=== PATIENT | male | born 1935 | race Caucasian/White ===

== ENCOUNTER → 2017-01-02 | Outpatient (CLI) | payer OTHER ==
[~2017-01-02] MED LIST: DEPO METHYLPREDNISOLONE 40 MG/ML SDV ONE; IOPAMIDOL (ISOVUE 370) 100 ML BTL IV ONE; LIDOCAINE 1% 300 MG/30 ML SDV ONE; ROPIVACAINE HCL 150 MG/30 ML INJ ONE
== END ==
LOC: FIMAGING 10:29
PROVIDERS: ATTEND Orthopaedic Surgery
DX: M25.551 Pain in right hip (principal)
CPT/HCPCS: 20610; J1030; J2795; Q9967

== ENCOUNTER 2017-06-04 07:57 | Inpatient (IN) | payer OTHER ==
--- NOTE | 2017-06-04 07:16 | PDHPUP ---
History & Physical Update H&P update statement: This history and physical update is based on an assessment of the patient which was completed after admission or registration (within 24 hours), but prior to the surgery/procedure. H&P update: H&P reviewed & patient examined, no change in patient's condition since H&P completed
[~2017-06-04 07:57] MED LIST changes: +BUPI/epINEPH/KETOROLAC IU ONE; -DEPO METHYLPREDNISOLONE 40 MG/ML SDV ONE; -IOPAMIDOL (ISOVUE 370) 100 ML BTL IV ONE; -LIDOCAINE 1% 300 MG/30 ML SDV ONE; +ROPIVACAINE 0.2% 80 MG, EPINEPHrine 0.2 MG, KETOROLAC TROMETHAMINE 30 MG in SYRINGE 0 ML IU ONE; -ROPIVACAINE HCL 150 MG/30 ML INJ ONE; +TRANEXAMIC ACID 3,000 MG in NS (SYRINGE) 50 ML IRR ONE; +TRANEXAMIC ACID 3,000 MG/50 ML BAG IRR ONE
[2017-06-04] MEDS ORDERED: DEXAMETHASONE 4 MG/ML VIAL IVP ONE (08:08)
[2017-06-04] MEDS ORDERED: ceFAZolin 2 GM/SWFI 2 GM/20 ML SYR IVP ONE (08:08)
[2017-06-04] MEDS ORDERED: ACETAMINOPHEN 325 MG TAB PO ONE (08:08)
[2017-06-04] MEDS ORDERED: FAMOTIDINE 20 MG TAB PO ONE (08:08)
[2017-06-04] MEDS ORDERED: LR 1,000 ML IV ONE (08:11)
[2017-06-04] MEDS ORDERED: LIDOCAINE 1% 2 ML INJ ID PRN (08:11)
[2017-06-04] MEDS ORDERED: MIDAZOLAM 2 MG/2 ML VIAL IVP ONE (09:51)
--- NOTE | 2017-06-04 09:51 | PDANEPAE ---
ANE History of Present Illness R LUCAS ANE Past Medical History - Cardiovascular History Hx Hypertension: Yes Hx Arrhythmias: Yes Hx Chest Pain: Yes Hx Coronary Artery / Peripheral Vascular Disease: Yes Hx CHF / Valvular Disease: No Hx Palpitations: No Cardiovascular History Comment: pt has 6 drug eluding stent placed 2016 - Pulmonary History Hx COPD: No Hx Asthma/Reactive Airway Disease: No Hx Recent Upper Respiratory Infection: No Hx Oxygen in Use at Home: No Hx Sleep Apnea: No Sleep Apnea Screening Result - Last Documented: Positive - Neurologic History Hx Cerebrovascular Accident: No Hx Seizures: No Hx Dementia: No - Endocrine History Hx Diabetes: No - Renal History Hx Renal Disorders: No - Liver History Hx Hepatic Disorders: No - Neurological & Psychiatric Hx Hx Neurological and Psychiatric Disorders: No - Cancer History Hx Cancer: No - Congenital Disorder History Hx Congenital Disorders: Yes Congenital History Comment: heart disease - GI History Hx Gastrointestinal Disorders: Yes Gastrointestinal History Comment: reflux, gerd - Other Health History Other Health History: bruises easily - Chronic Pain History Chronic Pain: No - Surgical History Prior Surgeries: cardiac cath. 2016 6 stents placed. 25 december, 22 february ANE Review of Systems Review of systems is: negative Review of Systems: - Exercise capacity METS (RN): 4 METS ANE Patient History - Allergies Allergies/Adverse Reactions: No Known Allergies Allergy (Verified 05/15/17 17:03) - Home Medications Home medications: home medication list seen and reviewed Home Medications: Aspirin EC [Aspirin EC 81 mg (*)] 81 mg PO HS 01/02/16 [Last Taken 06/03/17] Crane-3 Fatty Acids [Fish Oil 1000 mg (*)] 2,000 mg PO HS 01/02/16 [Last Taken 05/28/17] Cholecalciferol Vit D3 [Vitamin D3 2000 units tab (OTC)] 4,000 units PO HS 05/15 [Last Taken 05/28/17] Clopidogrel Bisulfate [Plavix (*)] 75 mg PO DAILY@05/15/17 [Last Taken ] Metoprolol Succinate Xr [Toprol Xl 25 mg (*)] 25 mg PO DAILY@12 05/15/17 [Last Taken 06/04/17] Rosuvastatin Calcium [Crestor 20mg (*)] 20 mg PO HS 05/15/17 [Last Taken ] - NPO status NPO Since - Liquids (Date): 06/04/17 NPO Since - Liquids (Time): 06:30 NPO Since - Solids (Date): 06/03/17 NPO Since - Solids (Time): 19:30 - Anes Hx Anes Hx: no prior problems - Smoking Hx Smoking Status: Never smoked - Family Anes Hx Family Anes Hx: none Family Hx Anesthesia Complications: none ANE Labs/Vital Signs - Vital Signs Blood Pressure: 147/84 Heart Rate: 64 Respiratory Rate: 14 O2 Sat (%): 94 Height: 175.26 cm Weight: 87.09 kg ANE Physical Exam - Airway Neck exam: FROM Mallampati Score: Class 1 Mouth exam: normal dental/mouth exam - Pulmonary Pulmonary: no respiratory distress - Cardiovascular Cardiovascular: regular rate and rhythym - ASA Status ASA Status: III ANE Anesthesia Plan Anesthesia Plan: spinal Total IV Anesthesia: Yes
[2017-06-04] MEDS ORDERED: PROPOFOL/EMULSION 500 MG/50 ML BOTTLE IV ONE (10:09)
[2017-06-04] MEDS ORDERED: LIDOCAINE 2% 100 MG/5 ML SYR ONE (10:09)
[2017-06-04] MEDS ORDERED: HYDROCODONE/APAP 5/325 TAB PO PRN (11:06)
[2017-06-04] MEDS ORDERED: HYDROmorphONE/DILAUDID 1 MG/ML INJ IVP PRN (11:06)
[2017-06-04] MEDS ORDERED: ACETAMINOPHEN 500 MG TAB PO PRN (11:06)
[2017-06-04] MEDS ORDERED: NALOXONE HCL 0.4 MG/ML INJ IVP PRN (11:06)
[2017-06-04] MEDS ORDERED: fentaNYL 100 MCG/2 ML INJ IVP PRN (11:06)
[2017-06-04] MEDS ORDERED: OXYCODONE/APAP 5/325 TAB PO PRN (11:06)
[2017-06-04] MEDS ORDERED: MEPERIDINE 25 MG/ML SYR IVP PRN (11:06)
[2017-06-04] MEDS ORDERED: ONDANSETRON 4 MG/2 ML VIAL IVP PRN ×2 (11:06→11:42)
[2017-06-04] MEDS ORDERED: DEXAMETHASONE 4 MG/ML VIAL IVP PRN (11:06)
[2017-06-04] MEDS ORDERED: PHENYLEPHRINE HCL 100 MCG/ML SYR ONE (11:08)
--- NOTE | 2017-06-04 11:09 | POSTANESTH ---
Post Anesthetic Evaluation Cardiovascular Status: Similar to Pre-Op Cond Respiratory Status: Normal, Stable, Similar to Pre-op Cond. Level of Consciousness/Mental Status: Can Participate in Eval, Moderately Sleepy Pain Control: Adequate, Prn Tx Ordered Nausea/Vomiting Control: Adequate, Prn Tx Ordered Complications Possibly Related to Anesthesia: None Noted
[2017-06-04] MEDS ORDERED: PROMETHAZINE HCL 25 MG SUPPR PR PRN (11:42)
[2017-06-04] MEDS ORDERED: CYCLOBENZAPRINE 10 MG TAB PO PRN (11:42)
[2017-06-04] MEDS ORDERED: diphenhydrAMINE 25 MG CAP PO PRN (11:42)
[2017-06-04] MEDS ORDERED: PROMETHAZINE HCL 25 MG/ML INJ IVP PRN (11:42)
[2017-06-04] MEDS ORDERED: METOCLOPRAMIDE 10 MG/2 ML VIAL IVP PRN (11:42)
[2017-06-04] MEDS ORDERED: MAGNESIUM HYDROXIDE 30 ML UDCUP PO PRN (11:42)
[2017-06-04] MEDS ORDERED: LACTULOSE 20 GM/30 ML UDCUP PO PRN (11:42)
[2017-06-04] MEDS ORDERED: BISACODYL 10 MG SUPP PR PRN (11:42)
[2017-06-04] MEDS ORDERED: DIPHENOXYLATE/ATROPINE LOMOTIL 1 TAB PO PRN (11:42)
[2017-06-04] MEDS ORDERED: POLYETHYLENE GLYCOL 3350 17 GM PKT PO PRN (11:42)
[2017-06-04] MEDS ORDERED: TEMAZEPAM 15 MG CAP PO PRN (11:42)
[2017-06-04] MEDS ORDERED: ONDANSETRON DISINTEGRATING 4 MG TAB PO PRN (11:42)
--- NOTE | 2017-06-04 11:42 | POSTOPPROG ---
Post Op Note Date of Operation: 06/04/17 Surgeon: Rai Bright Manager Of Housekeeping: chandrika bright Anesthesiologist: dr. estrada Anesthesia: Spinal Pre-op Diagnosis: right hip OA Post-op Diagnosis: same Indication: right hip pain due to OA that failed conservative measures Procedure: R LUCAS ant approach Findings: severe hip OA Inf/Abcess present in the surg proc area at time of surgery?: No EBL: 100-500
[2017-06-04] MEDS ORDERED: NITROGLYCERIN 0.4 MG BTL SL PRN (11:43)
[2017-06-04] MEDS ORDERED: METOPROLOL SUCCINATE XR 25 MG TAB PO SCH (12:00)
[2017-06-04] MEDS ORDERED: LR 1,000 ML IV SCH (12:00)
[2017-06-04] MEDS: ACETAMINOPHEN 325 MG TAB PO SCH ×2 (13:13→17:42)
[2017-06-04] MEDS ORDERED: ceFAZolin 2 GM/DEXTROSE 100 ML IV SCH (14:00)
[2017-06-04] MEDS: oxyCODONE IR 5 MG TAB PO PRN ×2 (15:24→20:50)
[2017-06-04] MEDS: ceFAZolin 2 GM/SWFI 2 GM/20 ML SYR IVP SCH (17:43)
--- NOTE | 2017-06-04 18:12 | PDMN ---
Medical Necessity Medical necessity: IP surgery per [facility] cpt [id number] L LUCAS
[2017-06-04] MEDS: FAMOTIDINE 20 MG TAB PO SCH (20:50)
[2017-06-04] MEDS ORDERED: ROSUVASTATIN CALCIUM 20 MG TAB PO SCH (21:00)
[2017-06-04] MEDS ORDERED: ASPIRIN EC 81 MG TAB PO SCH (21:00)
[2017-06-04] MEDS: SENNOSIDES/DOCUSATE SODIUM TAB PO SCH (21:26)
[2017-06-05] MEDS: ACETAMINOPHEN 325 MG TAB PO SCH ×2 (00:56→05:23)
[2017-06-05] MEDS: ceFAZolin 2 GM/SWFI 2 GM/20 ML SYR IVP SCH (00:56)
[2017-06-05 04:33] VITALS: O2SAT 93
[2017-06-05 07:39] VITALS: BP 121/73; PULSE 56; RESP 14; TEMP 97.6
[2017-06-05] MEDS ORDERED: CLOPIDOGREL BISULFATE 75 MG TAB PO SCH ×2 (09:00→10:00)
[2017-06-05] MEDS ORDERED: PANTOPRAZOLE SODIUM 40 MG TAB PO SCH (09:00)
--- NOTE | 2017-06-05 09:07 | SOAPPROG ---
SOAP Progress Note Assessment/Plan: Assessment: Patient is doing well POD 1 s/p RTHA Pain management: pain is well controlled on oral pain meds. VTE ppx: recommend resuming plavix and aspirin, cont LACHO and SCDs Anemia: level is expected initially postop. Asymptomatic. Continue to monitor D/c planning: d/c to home today pending release from PT Plan: 06/05/17 09:06 Subjective: Jose is doing well today, denies SOB, chest pain and N/V. Objective: Vital Signs Temp Pulse Resp BP Pulse Ox 36.4 C 56 L 14 121/73 H 93 06/05/17 07:37 06/05/17 07:37 06/05/17 07:37 06/05/17 07:37 06/05/17 07:37 Laboratory Results 06/05/17 05:03 06/05/17 05:03 06/04/17 06/05/17 06/06/17 05:59 05:59 05:59 Intake Total 5431 Output Total 1625 Balance 3806 RLE: incision dressing is clean and dry, NVI, +pf/df ICD10 Worksheet Patient Problems: Problems Problem Status Onset Primary localized osteoarthritis of right hip Acute CAD (coronary artery disease), [place] coronary artery Acute
[2017-06-05] MEDS: FAMOTIDINE 20 MG TAB PO SCH (09:13)
[2017-06-05] MEDS: SENNOSIDES/DOCUSATE SODIUM TAB PO SCH (09:13)
--- NOTE | 2017-06-05 15:06 | GDS ---
[f rep st] DISCHARGE SUMMARY ADMISSION DIAGNOSIS: Right hip osteoarthritis. DISCHARGE DIAGNOSIS: Right hip osteoarthritis. PROCEDURE: Right total hip arthroplasty. VTE PROPHYLAXIS: Recommend patient resume Plavix and aspirin. BRIEF DESCRIPTION OF HOSPITAL STAY: Patient was admitted for an elective joint arthroplasty. The pa john tolerated the procedure well and has passed physical therapy. The patient was given appropriat e antibiotic prophylaxis and venous thromboembolism prophylaxis. The patient's pain was well control led on oral pain medication, patient was holding down food, and had urinated. Decision was made to d ischarge the patient. The patient was given post-operative prescriptions pre-operatively. PLAN: Follow up as scheduled at Dr. Schwab's office June 26 at 1:15. /[id number]/MODL
--- NOTE | 2017-06-05 19:37 | GOP ---
[f rep st] OPERATIVE REPORT DATE OF OPERATION: 06/04/2017 SURGEON: Blas Schwab MD [employer] OPERATOR: EVARISTO Lujan. ANESTHESIA: Spinal. PREOPERATIVE DIAGNOSIS: Right hip osteoarthritis. POSTOPERATIVE DIAGNOSIS: Right hip osteoarthritis. PROCEDURE PERFORMED: Right total hip arthroplasty with x-ray. FINDINGS: ESTIMATED BLOOD LOSS: 200 cc. INDICATIONS: The patient has progressively worsening arthritis of the hip which has failed medical m anagement. The patient understands the treatment options including continued non-operative care and has selected surgical intervention. The patient has decided to undergo total hip arthroplasty via th e direct anterior approach, understanding the risks of the procedure including, but not limited to, n eurovascular injury, infection, persistent pain, component wear and loosening, deep venous thrombosis , pulmonary embolism, limb length inequality, hip instability (including dislocation), and intra-oper ative fractures. DESCRIPTION OF PROCEDURE: After proper identification of the patient including verification and mustapha ing the surgical site, the patient was brought to the operating room and placed in the supine positio n. All bony prominences were well padded. Anesthesia was induced without complication and intraveno us prophylactic antibiotics were administered prior to skin incision. The operative leg was placed in the Trumpf Arch table extension and the well leg in a [place] leg ho lder. The patient was prepped and draped in the usual sterile fashion. The C-arm was draped for int ra-operative fluoroscopy to check acetabular position, femoral component position including leg lengt h and femoral offset. Attention was then drawn to surgical exposure of the hip. An incision was made with a #10 [place] r blade starting 3 cm lateral and 3 cm distal to the anterior superior iliac spine measuring 8-10 cm and coursing distally toward the greater trochanter. The skin and subcutaneous tissues were divided sharply down to the fascia marylou. The fascia marylou was incised in line with the skin incision exposing the underlying tensor fascia marylou muscle. The muscle was bluntly elevated from the fascia and the f irst extracapsular Cobra retractor was placed laterally at the junction of the superior femoral neck and greater trochanter. The lateral femoral circumflex vessels were identified, cauterized, and divi ded with the Aquamantys bipolar cautery. The deep investing fascia of the TFL was divided to allow p erin mobilization of the muscle preventing damage during the retraction. The reflected head of the rectus femoris muscle was elevated off the anterior hip capsule and a medial Cobra retractor was plac ed just proximal to the lesser trochanter. The anterior capsulotomy was made sharply from the superolateral acetabulum to the saddle junction of the superior femoral neck and greater trochanter, then coursing inferomedial towards the lesser troc hanter. The retractors were then placed in the intracapsular position for femoral neck osteotomy. C orresponding to pre-operative templating, the osteotomy was made with the oscillating saw carefully p rotecting the greater trochanter and soft tissues. The femoral head was removed from the acetabulum with a corkscrew and confirmed to be severely arthritic with exposed bone, deformity and osteophytes. Similar findings were confirmed in the acetabulum. The Arch table extension was then placed in 40 degrees external rotation. Attention was then drawn to the acetabular preparation. After placement of the anterior and posterio r Cobra retractors outside the labrum and intracapsular, the circumferential labrum was removed sharp ly. The foveal contents were then removed and hemostasis obtained with cautery. The first reamer selected was sized using the removed femoral head. Reaming began with medialization and then commenced in 2 mm increments at 45 degrees of abduction and 15 degrees of anteversion using fluoroscopic navigation. Reaming ceased 1 mm less than the definitive acetabular component and micheline esponded to the pre-operative templating. The final acetabular component was inserted using fluorosc opy to achieve proper orientation yielding excellent purchase and stability in the acetabulum. The f inal acetabular liner was then placed and its seating confirmed. Attention was then turned to the femur. The Arch table extension was placed in extension and adducti on, delivering the osteotomized femoral neck into the wound. A 2-pronged femoral elevator was placed at the calcar and another at the tip of the greater trochanter. The posterolateral capsule was rele ased with cautery allowing mobilization of the femur lateral and anterior for preparation. The exter nal rotators were visualized and preserved. A curette and rongeur were used to open the starting poi nt for broaching. Serial broaching started with the #0 broach and ended with the broach that exhibit ed excellent fit in the proximal femur. A change in pitch during mallet strikes was accompanied by t he inability to advance the broach any further. The trial reduction was performed and fluoroscopic n avigation was utilized to check limb length. Adjustments were made to equalize limb length according ly. After the final trials were accepted they were removed and the wound was copiously lavaged. The femo ral component was seated to the same depth as the final broach and the femoral head was impacted onto the clean trunnion. The hip was then reduced for the final time and once more fluoroscopy was used to check that limb length equality was achieved. The wound was irrigated and closed in layers, the fascia marylou with 2-0 Quill, the subcutaneous tissue with 2-0 Quill, and the skin with Dermabond. Sterile dressings were applied. Final sharps and spon ge counts were accurate. The patient was then transferred to a hospital bed and brought to the [facility] room in stable condition. IMPLANTS: Accolade II size 7 at 127, acetabular component 58 mm Tritanium, the liner is a Trident X3 36 mm, head is a Biolox Delta 36 mm +5. /[id number]/MODL
== END 2017-06-05 10:49 | disposition home or self-care (01) | DRG 470 ==
LOC: F3N 07:57
PROVIDERS: ADMIT Orthopaedic Surgery; ATTEND Orthopaedic Surgery
PROC: 0SR904A Replacement of Right Hip Joint with Ceramic on Polyethylene Synthetic Substitute, Uncemented, Open Approach (ICD-10-PCS; principal; 2017-06-04 10:15)
DX: M16.11 Unilateral primary osteoarthritis, right hip (principal); Z96.642 Presence of left artificial hip joint; Z96.651 Presence of right artificial knee joint
CPT/HCPCS: 97110-GP; 97116-GP; 97161-GP; 97165-GO; G8978-GP-CI; G8979-GP-CI; G8980-GP-CI; G8987-GO-CI; G8988-GO-CI; G8989-GO-CI; J0171; J0690; J1100; J1885; J2001; J2250; J2370; J2704

== ENCOUNTER → 2017-09-19 | Outpatient (CLI) | payer OTHER | LOC: BHFA 15:30 | PROVIDERS: ATTEND Internal Medicine Cardiovascular Disease | DX: I25.10 Atherosclerotic heart disease of native coronary artery without angina pectoris (principal) ==

== ENCOUNTER → 2018-01-02 | Outpatient (CLI) | payer OTHER | LOC: BHFA 13:30 | PROVIDERS: ATTEND Internal Medicine Cardiovascular Disease | DX: R07.9 Chest pain, unspecified (principal); R06.02 Shortness of breath ==

== ENCOUNTER → 2018-02-05 | Outpatient (CLI) | payer OTHER | LOC: FIMAGING 14:57 | PROVIDERS: ATTEND Internal Medicine | DX: E83.52 Hypercalcemia (principal); R05 Cough; R07.9 Chest pain, unspecified; R22.2 Localized swelling, mass and lump, trunk; R59.0 Localized enlarged lymph nodes; J90 Pleural effusion, not elsewhere classified ==

== ENCOUNTER 2018-02-06 10:18 | Inpatient (IN) | payer OTHER ==
[2018-02-06] MEDS ORDERED: ONDANSETRON DISINTEGRATING 4 MG TAB PO PRN (10:34)
[2018-02-06] MEDS ORDERED: ONDANSETRON 4 MG/2 ML VIAL IVP PRN (10:34)
[2018-02-06 12:43] LABS: PLATELET COUNT 171 10^3/uL (150-400)
[2018-02-06 12:51] LABS: INR 1.11 (0.83-1.16); PROTIME(PATIENT) 14.5 SEC (12.0-15.0)
--- NOTE | 2018-02-06 13:08 | CPEKG ---
Test Reason : OPEN Blood Pressure : / mmHG Vent. Rate : 079 BPM Atrial Rate : 080 BPM P-R Int : 203 ms QRS Dur : 111 ms QT Int : 385 ms P-R-T Axes : 001 -09 038 degrees QTc Int : 442 ms Sinus rhythm Probable lateral infarct, old Confirmed by Andrey Feng ([id number]) on 02/06/2018 1:08:02 PM Referred By: Confirmed By:Andrey Feng
[2018-02-06] MEDS ORDERED: NITROGLYCERIN 0.4 MG BTL SL PRN (13:29)
[2018-02-06] MEDS ORDERED: PAMIDRONATE DISODIUM 90 MG in NS 250 ML IV ONE (13:51)
[2018-02-06] MEDS: NS 1,000 ML IV SCH (13:59)
--- NOTE | 2018-02-06 14:03 | GHP ---
DATE OF ADMISSION: 02/06/2018 CHIEF COMPLAINT: Sent in by PCP. HISTORY OF PRESENT ILLNESS: This is an 82-year-old man who has been following up with his primary care physician, Dr. Ferrer, for recent changes in his health. He initially went to see her about 2 weeks ago after having had about 1 week with the preceding symptoms of dizziness, weakness, early satiety. His also notes that he has lost about 7 pounds in the last month and a half. She ran labs which revealed hypercalcemia. Further labs and imaging revealed acute kidney injury. CT scan of his chest (he did have back pain) did show retroperitoneal mass with significant lymphadenopathy. He has never had any sort of cancer before. He is not having night sweats. He is taking NSAIDs for his back pain. His appetite has decreased, and he was noted to be slightly hypotensive in Dr. Ferrer's office. At that point his antihypertensives were held. He has had trouble walking given what he describes as dizziness. He does not exactly say that he is weak. PAST MEDICAL/SURGICAL HISTORY: 1. Hypertension. 2. Coronary artery disease status post PCI in 2016. 3. Hyperlipidemia. 4. Bilateral LUCAS. 5. Bilateral knee surgeries. MEDICATIONS: Please see medication reconciliation. ALLERGIES: No known drug allergies. FAMILY HISTORY: Negative for cancer. SOCIAL HISTORY: He does not smoke. He occasionally drinks a beer. REVIEW OF SYSTEMS: A 10-point review of systems is conducted and is negative except per HPI. PHYSICAL EXAM: GENERAL: The patient is a very pleasant man who is resting comfortably. He appears somewhat fatigued but otherwise in no acute distress. HEENT: Normocephalic, atraumatic. CARDIOVASCULAR: Regular rate, rhythm. No murmurs, rubs, or gallops. PULMONARY: Lungs clear to auscultation bilaterally. ABDOMEN: Soft, nontender, nondistended. SKIN: No rash. : Shows no Roberts. NEUROLOGIC: Alert and oriented x3. His muscle strength is full throughout. He has sensation intact to light touch in his lower extremities. PSYCHIATRIC: Normal mood and affect. LABS: Creatinine is 1.8, BUN 25, his calcium is 12.7, hemoglobin is 13.8, LDH is 462. DATA: 1. ECG, which I personally viewed and interpreted, shows sinus rhythm. He has Q-waves in 1 and L. 2. I reviewed his chart including Dr. Ferrer's office note. IMPRESSION AND PLAN: 1. Concerning history as well as laboratory findings. We need a biopsy of his retroperitoneal mass. I have ordered this. Oncology will consult. CT abd/ pelvis and head ordered for further staging. 2. Acute kidney injury: Current creatinine is 1.8. He had previously been around 1 as recently as May of this year. We will check urinalysis as well as urine electrolytes. We will aggressively hydrate with IV fluid. I suspect that this is prerenal though intrarenal process certainly possible if malignancy turns out to be myeloma. If his kidney function is not improving overnight, we will involve Nephrology. 3. Hypercalcemia with suppressed PTH consistent with malignancy: We will see if this resolves with IV fluids and Pamidronate. 4. Coronary artery disease status post percutaneous coronary intervention: We will hold his aspirin for now while we await a biopsy. He is not having any chest pain currently. 5. Hyperlipidemia: Crestor. 6. Gastroesophageal reflux disease: Protonix. 7. Code status: He would like to be do not resuscitate. 8. Deep venous thrombosis prophylaxis: SCDs, given biopsy. /[id number]/MODL MTDD
[2018-02-06] MEDS: ALLOPURINOL 300 MG TAB PO SCH (14:14)
[2018-02-06] MEDS ORDERED: PAMIDRONATE DISODIUM 60 MG in NS 250 ML IV ONE (14:15)
--- NOTE | 2018-02-06 16:25 | PDANEPAE ---
ANE History of Present Illness 82 yo with malaise and ARF found to have multiple enlarged LN ANE Past Medical History - Cardiovascular History Hx Hypertension: Yes Hx Arrhythmias: Yes Hx Chest Pain: Yes Hx Coronary Artery / Peripheral Vascular Disease: Yes Hx CHF / Valvular Disease: No Hx Palpitations: No Cardiovascular History Comment: pt has 6 drug eluding stent placed 2016 - Pulmonary History Hx COPD: No Hx Asthma/Reactive Airway Disease: No Hx Recent Upper Respiratory Infection: No Hx Oxygen in Use at Home: No Hx Sleep Apnea: No Sleep Apnea Screening Result - Last Documented: Positive - Neurologic History Hx Cerebrovascular Accident: No Hx Seizures: No Hx Dementia: No - Endocrine History Hx Diabetes: No Hypothyroid: No Hyperthyroid: No Obesity: no Endocrine History Comment: hypercalcemia - Renal History Hx Renal Disorders: Yes Renal History Comment: ARF - Liver History Hx Hepatic Disorders: No - Neurological & Psychiatric Hx Hx Neurological and Psychiatric Disorders: No - Cancer History Hx Cancer: No - Congenital Disorder History Hx Congenital Disorders: Yes Congenital History Comment: heart disease - GI History GERD: mild Hx Gastrointestinal Disorders: Yes Gastrointestinal History Comment: reflux, gerd - Other Health History Other Health History: bruises easily - Chronic Pain History Chronic Pain: No - Surgical History Prior Surgeries: cardiac cath. 2016 6 stents placed. 25 december, 22 february ANE Review of Systems Review of Systems: - Exercise capacity Exercise capacity: <4 METS - Systems Constitutional: Reports: malaise, weakness, weight loss ANE Patient History - Allergies Allergies/Adverse Reactions: No Known Allergies Allergy (Verified 05/15/17 17:03) - Home Medications Home Medications: Aspirin EC [Aspirin EC 81 mg (*)] 81 mg PO HS 01/02/16 [Last Taken 01/23/18] Maramec-3 Fatty Acids [Fish Oil 1000 mg (*)] 2,000 mg PO HS 01/02/16 [Last Taken 01/30/18] Cholecalciferol Vit D3 [Vitamin D3 2000 units tab (OTC)] 4,000 units PO HS 05/15 [Last Taken 01/30/18] Rosuvastatin Calcium [Crestor 20mg (*)] 20 mg PO HS 05/15/17 [Last Taken ] Amoxicillin Trihydrate [Amoxicillin] 2,000 mg PO AD 02/06/18 [Last Taken Unknown ] Ibuprofen [Motrin (*)] 200 mg PO DAILY PRN 02/06/18 [Last Taken 02/06/18] - NPO status NPO Since - Liquids (Date): 02/06/18 NPO Since - Liquids (Time): 07:00 NPO Since - Solids (Date): 02/06/18 NPO Since - Solids (Time): 07:00 - Smoking Hx Smoking Status: Never smoked - Family Anes Hx Family Hx Anesthesia Complications: none ANE Labs/Vital Signs - Labs Result Diagrams: 02/06/18 12:30 02/06/18 12:30 - Vital Signs Blood Pressure: 142/96 Heart Rate: 83 Respiratory Rate: 16 O2 Sat (%): 97 Height: 175.26 cm Weight: 85.4 kg ANE Physical Exam - Airway Neck exam: FROM Mallampati Score: Class 2 Mouth exam: normal dental/mouth exam - Pulmonary Pulmonary: no respiratory distress, clear to auscultation - Cardiovascular Cardiovascular: regular rate and rhythym - ASA Status ASA Status: III ANE Anesthesia Plan Anesthesia Plan: GA w LMA
[2018-02-06] MEDS ORDERED: BUPIVACAINE 0.5% 30 ML SDV ONE (16:31)
[2018-02-06] MEDS ORDERED: fentaNYL 100 MCG/2 ML INJ ONE (16:42)
[2018-02-06] MEDS ORDERED: PROPOFOL 200 MG/20 ML VIAL ONE (16:43)
[2018-02-06] MEDS ORDERED: PROMETHAZINE HCL 25 MG/ML INJ IVP PRN (17:20)
[2018-02-06] MEDS ORDERED: NALOXONE HCL 0.4 MG/ML INJ IVP PRN (17:20)
[2018-02-06] MEDS ORDERED: MEPERIDINE 25 MG/0.5 ML AMP IVP PRN (17:20)
[2018-02-06] MEDS ORDERED: fentaNYL 100 MCG/2 ML INJ IVP PRN (17:20)
[2018-02-06] MEDS ORDERED: LABETALOL HCL 5 MG/ML 20 ML MDV IVP PRN (17:20)
--- NOTE | 2018-02-06 17:20 | POSTANESTH ---
Post Anesthetic Evaluation Cardiovascular Status: Normal, Stable Respiratory Status: Normal, Stable Level of Consciousness/Mental Status: Can Participate in Eval Pain Control: Adequate, Prn Tx Ordered Nausea/Vomiting Control: Adequate, Prn Tx Ordered Complications Possibly Related to Anesthesia: None Noted
[2018-02-06] MEDS ORDERED: THROMBIN (BOVINE) 5,000 UNIT VIAL TP ONE (17:41)
--- NOTE | 2018-02-06 17:42 | PDMN ---
Medical Necessity Medical necessity: Pt meets IP criteria per MD; est los >2 mn for eval/tx of retroperitoneal mass w/significant lymphadenopathy, acute kidney injury, hypercalcemia & dizziness; requiring further workup/monitoring, biopsy, Oncology consult, possible Nephrology consult, aggressive IVFs (200 mls/hr) & IV Aredia; comorbid advanced age; per IP order 02/06/18
[2018-02-06] MEDS ORDERED: HYDROmorphONE/DILAUDID 1 MG/ML INJ IVP PRN (17:51)
--- NOTE | 2018-02-06 19:25 | PDCONSULT ---
Process Controls Technician Note: Patient is an 82-year-old male with a history of coronary artery disease who presents for evaluation of hypercalcemia of malignancy in the setting of retroperitoneal/pelvic adenopathy. Patient was seen by his primary care provider for nonspecific symptoms such as dizziness weakness and early satiety. Patient reports he lost may be 5 pounds in the last 2 months or so. Labs revealed hypercalcemia and acute kidney injury. Given the patient was having back discomfort a CT of the chest was performed on 02/05/2018 showed a large retroperitoneal mass with extensive thoracic and abdominal adenopathy as well as a small left pleural effusion. CT of the abdomen and pelvis on 02/06/2018 showed again a large retroperitoneal mass with extensive retroperitoneal and pelvic lymphadenopathy. The large large retroperitoneal mass in the left encases the aorta the psoas muscle on the left adrenal gland measures 11.6 x 7.3 cm. There is also a small complex left pleural effusion extending to the costophrenic angle adjacent to soft tissue nodularity/retroperitoneal mass concerning for malignant pleural effusion. He was subsequently directly admitted for evaluation and workup. Patient reports feeling well he denies fevers chills or drenching night sweats. Other than the 5 pound unintentional weight loss no other concerning symptoms. No chest pains or shortness of breath. No numbness or tingling in the extremities. Review of Systems: A complete 12 point ROS is negative unless indicated in the HPI Past Medical History -HTN -CAD -GERD Past Surgical History -Bilateral TKA -Bilateral LUCAS Social History: -No history of alcohol drugs or tobacco. Family History: -No family history of cancer Physical examination: General no acute distress nontoxic appearing male HEENT: Pupils equal round reactive to light no scleral icterus or conjunctival pallor is appreciated, mild lid lag on the right, oral mucosa is moist without any evidence of oral pharyngeal lesions Cardiovascular: Regular in rate rhythm with 2 out of 6 systolic murmur best heard at the right upper sternal border Chest: Clear to auscultation and percussion bilateral posterior lungs Abdomen: Soft nontender nondistended with palpable left upper quadrant mass to deep palpation Extremities: Warm well perfused 2+ dorsalis pedis and radial pulses bilaterally Lymph: No anterior posterior cervical no supraclavicular no axillary no inguinal lymphadenopathy appreciated. Of note right axillary lymph node biopsy site with dressing right inguinal lymph node biopsy site with dressing. Neurologic: Cranial nerves II through XII are intact 5 out of 5 upper and lower extremity strength bilaterally Medications and allergies reviewed in the electronic medical record Labs and imaging reviewed in the electronic medical record Assessment and plan Patient is 82-year-old male who presents with acute kidney injury and hypercalcemia subsequently found to have retroperitoneal and pelvic adenopathy concerning for lymphoma. Problem #1retroperitoneal and pelvic lymphadenopathy Imaging findings are most consistent with lymphoma. 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 Agree with right axillary and right inguinal lymph node/excisional biopsy. -We will follow-up on the results of these -Recommend getting hepatitis C and hepatitis B serologies as well as HIV testing Problem #2 acute kidney injury and hypercalcemia of malignancy Acute kidney injury is likely prerenal etiology from volume depletion precipitated by hypercalcemia of malignancy due to increased 1 alpha hydroxylase activity from lymphoma. Given patient's symptoms of dizziness and weakness and his age, would prefer to be aggressive with 90 mg of IV pamidronate as well as copious IV fluid resuscitation. Carlos Thomas
[2018-02-06] MEDS: OMEGA-3 FATTY ACIDS 1,000 MG CAP PO SCH (21:29)
[2018-02-06] MEDS: ROSUVASTATIN CALCIUM 20 MG TAB PO SCH (21:29)
[2018-02-06] MEDS: oxyCODONE IR 5 MG TAB PO PRN (23:04)
--- NOTE | 2018-02-06 23:51 | POSTOPPROG ---
Post Op Note Date of Operation: 02/06/18 Surgeon: Tung Calderon Envelope Sealing Machine Operator: duncan Anesthesiologist: anna Anesthesia: GET(General Endotracheal) Pre-op Diagnosis: adenopathy Post-op Diagnosis: same, path pending Indication: diagnosis Procedure: rt axillary node superficial dissection/ rt femoral node bx Findings: enlarged nodes, path pending Inf/Abcess present in the surg proc area at time of surgery?: No Depth: Deep Incisional (Fascial) EBL: Minimal Complications: none Specimen(s): axillary and femoral nodes
[2018-02-07] MEDS: NS 1,000 ML IV SCH ×3 (03:00→17:51)
[2018-02-07] MEDS: oxyCODONE IR 5 MG TAB PO PRN ×2 (03:00→21:13)
[2018-02-07 05:21] LABS: PLATELET COUNT 150 10^3/uL (150-400)
[2018-02-07] MEDS: ALLOPURINOL 300 MG TAB PO SCH (09:30)
[2018-02-07] MEDS: PANTOPRAZOLE SODIUM 40 MG TAB PO SCH (09:30)
--- NOTE | 2018-02-07 10:38 | ASMTCMCOM ---
CM Note CM Note Notes: Pt was admitted with a large retroperitneal mass and is s/p an exploratory surgery and bx of inguinal lymph node. Pathology is pending and oncology and surgery are following. Pt lives with his in [place]. CM will follow for any d/c needs. Date Signed: 02/07/2018 10:38 AM Electronically Signed By:CORNELL Cartagena
--- NOTE | 2018-02-07 10:56 | SOAPPROG ---
SOAP Progress Note Assessment/Plan: Assessment: 82 y/o M admitted with large retroperitoneal mass and lymphadenopathy. Ca+ 12.7 S/p R axillary and R groin LN excisional biopsies Path pending S: No complaints. Pain well controlled. O: Alert Afebrile RRR No increased WOB R axillary incision: dressing cdi R groin incision: dressing cdi Plan: Await path results. 02/07/18 10:53 Objective: Vital Signs Temp Pulse Resp BP Pulse Ox 36.6 C 80 20 148/78 H 86 L 02/07/18 08:00 02/07/18 08:00 02/07/18 08:00 02/07/18 08:00 02/07/18 05:10 Laboratory Results 02/07/18 04:43 02/07/18 04:43 02/06/18 02/07/18 02/08/18 05:59 05:59 05:59 Intake Total 2550 Output Total 200 150 Balance 2350 -150 PT 14.5 SEC (12.0-15.0) 02/06/18 12:30 INR 1.11 (0.83-1.16) 02/06/18 12:30 ICD10 Worksheet Patient Problems: Problems Problem Status Onset CAD (coronary artery disease), [place] coronary artery Acute Primary localized osteoarthritis of right hip Acute
--- NOTE | 2018-02-07 11:28 | SOAPPROG ---
ERIC Progress Note Assessment/Plan: Assessment: 1. Hypercalcemia 2 retroperitoneal mass 3 renal failure Right axillary and right inguinal lymph node biopsy pending, suspect lymphoma. Plan:We will continue IV hydration, await pathology. If he is stable it is conceivable he could go home prior to definitive path diagnosis. I will arrange for an echocardiogram, he may need central venous access depending on the type of lymphoma. 02/07/18 11:24 Subjective: feeling better Objective: Vital Signs Temp Pulse Resp BP Pulse Ox 97.8 F 80 20 148/78 H 86 L 02/07/18 08:00 02/07/18 08:00 02/07/18 08:00 02/07/18 08:00 02/07/18 05:10 Laboratory Results 02/07/18 04:43 02/07/18 04:43 02/06/18 02/07/18 02/08/18 05:59 05:59 05:59 Intake Total 2550 Output Total 200 150 Balance 2350 -150 PT 14.5 SEC (12.0-15.0) 02/06/18 12:30 INR 1.11 (0.83-1.16) 02/06/18 12:30 ICD10 Worksheet Patient Problems: Problems Problem Status Onset CAD (coronary artery disease), [place] coronary artery Acute Primary localized osteoarthritis of right hip Acute
[2018-02-07] MEDS ORDERED: ENOXAPARIN 30 MG/0.3 ML SYR SC ONE (12:00)
--- NOTE | 2018-02-07 12:53 | ECHO ---
[email or web address] [address] [address] Main: [phone] Fax: Transthoracic Echocardiogram Name: ANGIE CARREON MR#: [id number] Study Date: 02/07/2018 Study Time: 12:01 PM Date of : 1935 Age: 82 year(s) Height: 175.3 cm (69 in.) Weight: 85.28 kg (188 lb.) BSA: 2.01 m2 Gender: Male Examination: Echo Indication: Pre Chemo Image Quality: Contrast: Requested by: Juarez Duong BP: 149 mmHg/78 mmHg Heart Rate: Rhythm: Normal sinus rhythm Indication: Pre Chemo Procedure Staff Principal Clerk: Phillip Bronson RDCS Reading Physician: Desmond Choudhury MD Requesting Provider: Conclusions: Normal size left ventricle. EF is 68 %. No regional wall motion abnormality. Grade 1 diastolic dysfunction (abnormal relaxation). Normal RV function. The left atrium is normal in size. Mild aortic valve regurgitation is present. No aortic valve stenosis is present. Mild tricuspid regurgitation is present. The pulmonary artery pressure is mildly increased. There is no previous echocardiogram for comparison. Measurements: Chambers Valvular Assessment AV/MV Valvular Assessment TV/PV Normal Normal Normal Name Value Range Name Value Range Name Value Range Ao Princess (MM): 3.4 cm (2.2 cm-3.7 AV Vmax: 1.56 m/s (1 m/s-1.7 TR Vmax: 3.15 mm/s ( - ) cm) m/s) TR PGmax: 40 mmHg ( - ) IVSd (2D): 0.8 cm (0.6 cm-1.1 AV maxP mmHg ( - ) syst. PAP: 45 mmHg ( - ) cm) LVOT Vmax: 0.83 m/s (0.7 m/s-1.1 PV Vmax: 1.11 m/s (0.6 m/s-0.9 LVDd (2D): 4.2 cm (4.2 cm-5.9 m/s) m/s) cm) AR (PHT): 691 ms ( - ) PV PGmax: 5 mmHg ( - ) LVDs (2D): 2.6 cm (2.1 cm-4 MV E Vmax: 0.54 m/s ( - ) cm) MV A Vmax: 0.78 m/s ( - ) LVPWd (2D): 1.0 cm (0.6 cm-1 MV E/A: 0.69 ( - ) cm) LVEF (2D): 68 (>=54 %) Continued Measurements: Chambers Valvular Assessment AV/MV Valvular Assessment TV/PV Patient: ANGIE CARREON Study Date: 02/07/2018 Page 1 of 2 12:01 PM Name Value Name Value Name Value LADs Lon.6 cm MV E' Septal: 0.05 m/s CVP (est.): 5 mmHg LA Area: 19.6 cm2 MV E/E' Septal: 11.00 LA Volume: 57 ml MV E/E' Lateral: 11.50 LA Volume Index: 28.4 ml/m2 AR Vmax: 2.92 cm/s Findings: Left Ventricle: Normal size left ventricle. No LV hypertrophy. Normal global systolic LV function. EF is 68 %. No regional wall motion abnormality. Grade 1 diastolic dysfunction (abnormal relaxation). Right Ventricle: Normal size right ventricle. Normal RV function. Left Atrium: The left atrium is normal in size. Right Atrium: The right atrium is normal in size. Mitral Valve: The mitral valve is normal in appearance and function. There is no mitral valve regurgitation. Aortic Valve: Mild aortic cusp calcification is noted. Aortic valve is not well visualized. Mild aortic valve regurgitation is present. No aortic valve stenosis is present. Tricuspid Valve: The tricuspid valve appears normal. Mild tricuspid regurgitation is present. The pulmonary artery pressure is mildly increased. Pulmonic Valve: The pulmonic valve is normal in appearance and function. Aorta: The aorta is normal. Pericardium: No pericardial effusion. (No Signature Object) Patient: ANGIE CARREON Study Date: 02/07/2018 Page 2 of 2 12:01 PM [id number]
--- NOTE | 2018-02-07 13:11 | HOSPPROG ---
Hospitalist Progress Note Assessment/Plan: # suspected lymphoma - s/p LN biopsy yesterday # hypercalcemia d/t malignancy - s/p pamidronate - cont IVF # KIMBERLYN - better with IVF; continue aggressive hydration - hold nephrotoxins # CAD s/p PCI - hold asa for now, consider restarting depending on the type of chemo - cont crestor # HLD - crestor Subjective: s/p LN biopsy yesterday; reports still somewhat minimal urination; seen and discussed with patient, and family Objective: Vital Signs Temp Pulse Resp BP Pulse Ox 36.4 C 77 20 127/77 H 92 02/07/18 12:00 02/07/18 12:00 02/07/18 12:00 02/07/18 12:00 02/07/18 12:00 Laboratory Results 02/07/18 04:43 02/07/18 04:43 02/06/18 02/07/18 02/08/18 05:59 05:59 05:59 Intake Total 2550 Output Total 200 150 Balance 2350 -150 PT 14.5 SEC (12.0-15.0) 02/06/18 12:30 INR 1.11 (0.83-1.16) 02/06/18 12:30 - Time Spent With Patient Time Spent with Patient: greater than 35 minutes Time Spent with Patient: Greater than 35 minutes spent on this patients care, greater than 50% of time spent counseling, educating, and coordinating care regarding the above mentioned plan. - Physical Exam Constitutional: no apparent distress, appears nourished Eyes: anicteric sclera Ears, Nose, Mouth, Throat: hearing normal Cardiovascular: No edema Respiratory: no respiratory distress Gastrointestinal: No distension Skin: No rash Musculoskeletal: full muscle strength Neurologic: AAOx3 Psychiatric: not anxious ICD10 Worksheet Patient Problems: Problems Problem Status Onset Primary localized osteoarthritis of right hip Acute CAD (coronary artery disease), [place] coronary artery Acute
[2018-02-07] MEDS: OMEGA-3 FATTY ACIDS 1,000 MG CAP PO SCH (21:13)
[2018-02-07] MEDS: ROSUVASTATIN CALCIUM 20 MG TAB PO SCH (21:13)
[2018-02-08 05:26] LABS: PLATELET COUNT 145 10^3/uL (150-400)
[2018-02-08] MEDS: ACETAMINOPHEN 325 MG TAB PO PRN ×2 (08:16→17:53)
[2018-02-08] MEDS: ENOXAPARIN 40 MG/0.4 ML SYR SC SCH (08:17)
[2018-02-08] MEDS: ALLOPURINOL 300 MG TAB PO SCH (08:17)
[2018-02-08] MEDS: PANTOPRAZOLE SODIUM 40 MG TAB PO SCH (08:17)
--- NOTE | 2018-02-08 11:35 | SOAPPROG ---
SOИВАН Progress Note Assessment/Plan: Assessment: 1. Hypercalcemia 2 retroperitoneal mass 3 renal failure Right axillary and right inguinal lymph node biopsy pending, suspect lymphoma. Plan:His calcium and creatinine have normalized. He was able to ambulate this a.m. If he feels comfortable I think he could go home and follow-up in the office in about 48 hours. At that time we would recheck his labs and hopefully will be able to review his pathology and discuss treatment plans. 02/07/18 11:24 02/08/18 11:32 Subjective: He feels okay although I think he is still weak. Objective: Vital Signs Temp Pulse Resp BP Pulse Ox 97.7 F 81 14 143/73 H 95 02/08/18 11:25 02/08/18 11:25 02/08/18 11:25 02/08/18 11:25 02/08/18 11:25 Laboratory Results 02/08/18 04:36 02/08/18 04:36 02/07/18 02/08/18 02/09/18 05:59 05:59 05:59 Intake Total 2550 4137 1874 Output Total 200 926 300 Balance 2350 3211 1574 PT 14.5 SEC (12.0-15.0) 02/06/18 12:30 INR 1.11 (0.83-1.16) 02/06/18 12:30 ICD10 Worksheet Patient Problems: Problems Problem Status Onset CAD (coronary artery disease), [place] coronary artery Acute Primary localized osteoarthritis of right hip Acute
[2018-02-08] MEDS: NS 1,000 ML IV SCH (13:12)
--- NOTE | 2018-02-08 13:59 | HOSPPROG ---
Hospitalist Progress Note Assessment/Plan: # suspected lymphoma - s/p LN biopsy yesterday - f/u pathology # hypercalcemia d/t malignancy - resolved - s/p pamidronate # KIMBERLYN - much improved - cont IVF # CAD s/p PCI - cont crestor - restart asa # HLD - crestor # dispo - patient and concerned about his safety and fall risk at home given weakness; continue PT/OT and reassess; may need to treat as inpatient Subjective: feels weak Objective: Vital Signs Temp Pulse Resp BP Pulse Ox 36.5 C 81 14 143/73 H 95 02/08/18 11:25 02/08/18 11:25 02/08/18 11:25 02/08/18 11:25 02/08/18 11:25 Laboratory Results 02/08/18 04:36 02/08/18 04:36 02/07/18 02/08/18 02/09/18 05:59 05:59 05:59 Intake Total 2550 4137 1874 Output Total 200 926 300 Balance 2350 3211 1574 PT 14.5 SEC (12.0-15.0) 02/06/18 12:30 INR 1.11 (0.83-1.16) 02/06/18 12:30 - Physical Exam Constitutional: no apparent distress, appears nourished, other (gait unsteady) Cardiovascular: regular rate and rhythym, no murmur, rub, or gallop Respiratory: no respiratory distress, no rales or rhonchi, clear to auscultation Gastrointestinal: soft, non-tender abdomen, No guarding, No rebound, No distension ICD10 Worksheet Patient Problems: Problems Problem Status Onset Primary localized osteoarthritis of right hip Acute CAD (coronary artery disease), [place] coronary artery Acute
--- NOTE | 2018-02-08 14:26 | GOP ---
DATE OF OPERATION: 02/06/2018 SURGEON: Tung Calderon MD PREOPERATIVE DIAGNOSIS: Adenopathy and retroperitoneal mass. POSTOPERATIVE DIAGNOSIS: Adenopathy and retroperitoneal mass, pathology pending. PROCEDURE PERFORMED: 1. Right axillary superficial node dissection. 2. Right femoral node biopsy. FINDINGS: Patient was found to have a 2 cm femoral node, which was fairly firm and suspicious for po ssible lymphoma. In the right axilla, there was a clustering of nodes, which were soft but enlarged and suspicious for possible lymphoma. DESCRIPTION OF PROCEDURE: The patient was taken to the operating room where he received satisfactory general endotracheal anesthesia, placed in the supine position with the right arm outstretched on an arm board, prepped and draped in usual sterile fashion. Curvilinear incision was made at the base of the axilla. Dissection extended down through the axilla ry fascia into the axillary pocket. The palpable node was grasped with an Allis clamp and elevated u p. It was dissected free from surrounding subcutaneous and axillary tissue. There appeared to be a cluster of a group of nodes, which were all dissected free using hemoclips for hemostasis and/or elec trocautery and the cluster of groups was removed and sent to Pathology. Hemostasis was carefully obt ained. The wound was infiltrated with % Marcaine, and some topical thrombin was placed in the cavity, and was closed with 3-0 Vicryl for the subcu and fascia and 4-0 Monocryl subcuticular sti tch for the skin. Short incision was made over a palpable femoral node on the right groin. Dissection extended down th rough subcutaneous tissue. The node was identified it was grasped with an Allis clamp. It was disse cted free. There was much more inflammatory and scar tissue reaction in this area than in the axilla . Node was freed up and removed. Hemostasis was obtained by hemoclips and/or electrocautery. The w ound was closed in layers using 3-0 Vicryl for the subcutaneous tissue and superficial fascia and 4-0 Monocryl subcuticular stitch for the skin. He tolerated the procedure well. Blood loss was negligi ble. No complications. He was taken to the recovery room in good condition. /[id number]/MODL
--- NOTE | 2018-02-08 16:01 | ASMTCMCOM ---
CM Note CM Note Notes: Patient plan of care reviewed in rounds. Per therapy he will require HHC or SNF. He is unsteady but wants to go home. CM to follow for needs. Plan: TBD Date Signed: 02/08/2018 04:00 PM Electronically Signed By:Amy Mathis RN
--- NOTE | 2018-02-08 18:10 | PDGENHP ---
History & Physical Chief Complaint: POSSIBLE LYMPHOMA History of Present Illness: 82-YEAR-OLD MALE WHO IS ADMITTED AND FOUND TO HAVE A LARGE RETROPERITONEAL MASS IN DIFFUSE ADENOPATHY SUSPICIOUS FOR LYMPHOMA. I WAS CONSULTED FOR POSSIBLE INGUINAL OR AXILLARY NODE BIOPSY. CT SCAN SHOWS THE ENLARGED NODE IN THE RIGHT AXILLA BUT THE NODES IN THE RIGHT GROIN AREA ALTHOUGH PALPABLE OR NOT ENLARGED ON CT. HE DOES HAVE DIFFUSE RETROPERITONEAL ADENOPATHY IN THE CHEST AND TOMI ON SCAN. RISKS AND OPTIONS BEEN FULLY DISCUSSED Pertinent Past, Social, Family History: PAST MEDICAL HISTORY: HYPERTENSION, BILATERAL TOTAL HIP ARTHROPLASTIES BILATERAL KNEE SURGERIES. REVIEW OF SYSTEMS IS NEGATIVE ON A FULL 10 POINT REVIEW EXCEPT RELATED TO THE HPI. SOCIAL HISTORY NONSMOKER, . FAMILY HISTORY NONCONTRIBUTORY. NO KNOWN ALLERGIES. MEDICATIONS ARE LISTED IN HIS CHART Relevant Physical Exam: HIS GENERAL HEALTHY APPEARING 82-YEAR-OLD MALE IN NO ACUTE DISTRESS. HEAD NECK EXAM REVEALS NO ICTERUS OR ADENOPATHY OR ORAL LESIONS. NECK SUPPLE NONTENDER WITHOUT BRUITS. CHEST CLEAR AND SYMMETRIC. COR REGULAR RHYTHM. ABDOMEN SOFT WITH THE FULLNESS IN THE MIDLINE BUT NO DISTINCT MASSES AND NO HERNIAS. GENITALIA NORMAL. EXTREMITIES FULL RANGE OF MOTION FULL PULSES, THE RIGHT GROIN REVEALS A 1/2 TO 2 CM FIRM NODE. RIGHT AXILLA REVEALS A 2 CM SOFTER MORE WALL BOWEL KNOWN. THERE IS NO OTHER MAJOR PALPABLE ADENOPATHY Cardiorespiratory Assessment: IMPRESSION IS DIFFUSE ADENOPATHY CONSISTENT WITH LYMPHOMA/RISKS AND OPTIONS FULLY DISCUSSED. PLAN: AXILLARY AND/OR FEMORAL LYMPH NODE BIOPSIES
[2018-02-08] MEDS: ASPIRIN EC 81 MG TAB PO SCH (22:16)
[2018-02-08] MEDS: oxyCODONE IR 5 MG TAB PO PRN ×2 (22:17→23:41)
[2018-02-08] MEDS: OMEGA-3 FATTY ACIDS 1,000 MG CAP PO SCH (22:18)
[2018-02-08] MEDS: ROSUVASTATIN CALCIUM 20 MG TAB PO SCH (22:18)
[2018-02-09] MEDS: oxyCODONE IR 5 MG TAB PO PRN ×4 (00:30→21:02)
[2018-02-09] MEDS: NS 1,000 ML IV SCH (02:48)
[2018-02-09] MEDS: PANTOPRAZOLE SODIUM 40 MG TAB PO SCH (08:36)
[2018-02-09] MEDS: ALLOPURINOL 300 MG TAB PO SCH (08:36)
[2018-02-09] MEDS: ENOXAPARIN 40 MG/0.4 ML SYR SC SCH (08:37)
--- NOTE | 2018-02-09 09:50 | SOAPPROG ---
SOAP Progress Note Assessment/Plan: Assessment: 82 y/o M admitted with large retroperitoneal mass and lymphadenopathy. Ca+ 12.7 S/p R axillary and R groin LN excisional biopsies Path pending S: No complaints. Pain well controlled. O: Alert Afebrile RRR No increased WOB Incision sites cdi. Plan: Await path results. 02/09/18 09:49 Objective: Vital Signs Temp Pulse Resp BP Pulse Ox 36.4 C 79 17 151/90 H 97 02/09/18 08:46 02/09/18 08:46 02/09/18 08:46 02/09/18 08:46 02/09/18 08:46 Laboratory Results 02/08/18 04:36 02/09/18 04:18 02/08/18 02/09/18 02/10/18 05:59 05:59 05:59 Intake Total 4137 4925 Output Total 926 1700 Balance 3211 3225 PT 14.5 SEC (12.0-15.0) 02/06/18 12:30 INR 1.11 (0.83-1.16) 02/06/18 12:30 ICD10 Worksheet Patient Problems: Problems Problem Status Onset CAD (coronary artery disease), [place] coronary artery Acute Primary localized osteoarthritis of right hip Acute
--- NOTE | 2018-02-09 12:35 | HOSPPROG ---
Hospitalist Progress Note Assessment/Plan: * Extensive retroperitoneal LAD -await LN biopsy result - suspect lymphoma * Hypercalcemia of malignancy -improved s/p pamidronate * ARF -resolved with IVF * CAD/stent -ASA, crestor Dispo - may need SNF Subjective: Feels weak, c/o cough Objective: Vital Signs Temp Pulse Resp BP Pulse Ox 36.4 C 79 17 151/90 H 97 02/09/18 08:46 02/09/18 08:46 02/09/18 08:46 02/09/18 08:46 02/09/18 08:46 Laboratory Results 02/08/18 04:36 02/09/18 04:18 02/08/18 02/09/18 02/10/18 05:59 05:59 05:59 Intake Total 4137 4925 Output Total 926 1700 Balance 3211 3225 PT 14.5 SEC (12.0-15.0) 02/06/18 12:30 INR 1.11 (0.83-1.16) 02/06/18 12:30 CT chest/abd/pelvis reviewed - extensive LAD retroperitoneal case d/w dr rm regarding discharge plan - Physical Exam Constitutional: no apparent distress, appears nourished, not in pain Cardiovascular: regular rate and rhythym, no murmur, rub, or gallop Respiratory: no respiratory distress, no rales or rhonchi, clear to auscultation Gastrointestinal: normoactive bowel sounds, soft, non-tender abdomen, no palpable masses Skin: no rashes or abrasions, no fluctuance, no induration Neurologic: AAOx3, sensation intact bilaterally Psychiatric: interacting appropriately, not anxious, not encephalopathic, thought process linear ICD10 Worksheet Patient Problems: Problems Problem Status Onset Primary localized osteoarthritis of right hip Acute CAD (coronary artery disease), [place] coronary artery Acute
--- NOTE | 2018-02-09 15:41 | SOAPPROG ---
SOAP Progress Note Assessment/Plan: E&M for Retroperitoneal mass * Retroperitoneal mass with lymphadenopathy: Suspect lymphoma but final path is still pending. Discussed going home but he would like to get a little bit stronger. Depending on the findings were may be able to start therapy in the hospital and then send him for rehab. If the biopsy is nondiagnostic, we may be able to do a CT-guided biopsy of the retroperitoneal mass. * Hypercalcemia and acute renal failure: This is resolved with therapy. Most likely it is related to above. Subjective: He reports he is feeling better since coming in but still feels too weak to go home. He denies any acute pain. He reports he has not had a bowel movement in several days. He still has some back discomfort. Objective: Vital Signs Temp Pulse Resp BP Pulse Ox 36.4 C 79 17 151/90 H 97 02/09/18 08:46 02/09/18 08:46 02/09/18 08:46 02/09/18 08:46 02/09/18 08:46 Laboratory Results 02/08/18 04:36 02/09/18 04:18 02/08/18 02/09/18 02/10/18 05:59 05:59 05:59 Intake Total 4137 4925 Output Total 926 1700 240 Balance 3211 3225 -240 PT 14.5 SEC (12.0-15.0) 02/06/18 12:30 INR 1.11 (0.83-1.16) 02/06/18 12:30 CT Abdomen; CT Pelvis without contrast Clinical Indication: Retroperitoneal mass IMPRESSION: 1. Large retroperitoneal mass with extensive retroperitoneal and pelvic lymphadenopathy compatible with malignancy such as lymphoma. Retroperitoneal mass is easily accessible for percutaneous CT- guided core biopsy. 2. Complex left pleural effusion which is likely malignant. 3. Cholelithiasis. Dictated By: Canelo Finley MD Physical Exam - Physical Exam General Appearance: no apparent distress Respiratory: lungs clear Cardiac/Chest: regular rate, rhythm Abdomen: normal bowel sounds, non-tender, soft ICD10 Worksheet Patient Problems: Problems Problem Status Onset CAD (coronary artery disease), [place] coronary artery Acute Primary localized osteoarthritis of right hip Acute
[2018-02-09] MEDS ORDERED: HYDROmorphONE/DILAUDID 2 MG/ML INJ IVP PRN (17:00)
[2018-02-09] MEDS: ASPIRIN EC 81 MG TAB PO SCH (21:02)
[2018-02-09] MEDS: SENNOSIDES 1 TAB PO SCH (21:02)
[2018-02-09] MEDS: OMEGA-3 FATTY ACIDS 1,000 MG CAP PO SCH (21:03)
[2018-02-09] MEDS: ROSUVASTATIN CALCIUM 20 MG TAB PO SCH (21:03)
[2018-02-10] MEDS: ALLOPURINOL 300 MG TAB PO SCH (08:20)
[2018-02-10] MEDS: ACETAMINOPHEN 325 MG TAB PO PRN (08:20)
[2018-02-10] MEDS: oxyCODONE IR 5 MG TAB PO PRN ×2 (08:20→11:53)
[2018-02-10] MEDS: ENOXAPARIN 40 MG/0.4 ML SYR SC SCH (08:20)
[2018-02-10] MEDS: SENNOSIDES 1 TAB PO SCH (08:20)
[2018-02-10] MEDS: PANTOPRAZOLE SODIUM 40 MG TAB PO SCH (08:21)
[2018-02-10] MEDS ORDERED: hydrALAZINE 20 MG/ML VIAL IVP PRN (08:33)
[2018-02-10] MEDS: LISINOPRIL 10 MG TAB PO SCH (09:15)
--- NOTE | 2018-02-10 11:13 | SOAPPROG ---
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 Discussed going home but he would like to get a little bit stronger. Depending on the findings were may be able to start therapy in the hospital and then send him for rehab. * Hypercalcemia and acute renal failure: This is resolved with therapy. Most likely it is related to above. * Early dementia? He was oriented with me this morning. Still, may have difficulty with higher functions. If path confirms follicular, rather than be aggressive, could be more conservative with single agent rituximab. It will take longer to respond but have fewer side effects. Subjective: Report of trouble with mental testing yesterday. He still complains of some discomfort. He was a little dizzy when he first got up this morning. Objective: Vital Signs Temp Pulse Resp BP Pulse Ox 36.4 C 84 18 177/97 H 94 02/10/18 07:58 02/10/18 07:58 02/10/18 07:58 02/10/18 09:15 02/10/18 07:58 Laboratory Results 02/08/18 04:36 02/09/18 04:18 02/09/18 02/10/18 02/11/18 05:59 05:59 05:59 Intake Total 4925 400 Output Total 1700 440 Balance 3225 -40 PT 14.5 SEC (12.0-15.0) 02/06/18 12:30 INR 1.11 (0.83-1.16) 02/06/18 12:30 Physical Exam - Physical Exam General Appearance: no apparent distress Respiratory: lungs clear Cardiac/Chest: regular rate, rhythm ICD10 Worksheet Patient Problems: Problems Problem Status Onset CAD (coronary artery disease), [place] coronary artery Acute Primary localized osteoarthritis of right hip Acute
[2018-02-10] MEDS ORDERED: LORazepam 2 MG/ML INJ IVP ONE (12:06)
[2018-02-10] MEDS ORDERED: GADOBUTROL 10 ML VIAL IVP ONE (14:04)
[2018-02-10] MEDS ORDERED: LACTULOSE 20 GM/30 ML UDCUP PO PRN (15:01)
[2018-02-10] MEDS ORDERED: BISACODYL 10 MG SUPP PR PRN (15:01)
[2018-02-10] MEDS ORDERED: POLYETHYLENE GLYCOL 3350 17 GM PKT PO PRN (15:01)
[2018-02-10] MEDS ORDERED: MAGNESIUM HYDROXIDE 30 ML UDCUP PO PRN (15:01)
--- NOTE | 2018-02-10 16:16 | HOSPPROG ---
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 -await final biopsy -onc planning chemo - possible 1st dose before discharge * Hypercalcemia of malignancy -improved s/p pamidronate * ARF -resolved with IVF * Metabolic encephalopathy - probably due to hypercalcemia/ARF -scored only 03/22 on SLUMS - per this is not baseline -denies underlying dementia -rapidly improving - almost back to baseline -MRI brain pending rule out brain mets * CAD/stent -ASA, crestor * HTN -add lisinopril Dispo - strength and mentation improving - PT now feel will be safe for home with Subjective: Confusion resolving, strength improving Objective: Vital Signs Temp Pulse Resp BP Pulse Ox 36.4 C 86 17 151/75 H 94 02/10/18 12:17 02/10/18 12:17 02/10/18 12:17 02/10/18 12:17 02/10/18 12:17 Laboratory Results 02/08/18 04:36 02/09/18 04:18 02/09/18 02/10/18 02/11/18 05:59 05:59 05:59 Intake Total 4925 400 Output Total 1700 440 Balance 3225 -40 PT 14.5 SEC (12.0-15.0) 02/06/18 12:30 INR 1.11 (0.83-1.16) 02/06/18 12:30 d/w Dr. rm regarding mental status change check MRI brain rule out mets - Physical Exam Constitutional: no apparent distress, appears nourished, not in pain Cardiovascular: regular rate and rhythym, no murmur, rub, or gallop Respiratory: no respiratory distress, no rales or rhonchi, clear to auscultation Gastrointestinal: normoactive bowel sounds, soft, non-tender abdomen, no palpable masses Skin: no rashes or abrasions, no fluctuance, no induration Neurologic: AAOx3, sensation intact bilaterally Psychiatric: interacting appropriately, not anxious, not encephalopathic, thought process linear ICD10 Worksheet Patient Problems: Problems Problem Status Onset CAD (coronary artery disease), [place] coronary artery Acute Primary localized osteoarthritis of right hip Acute
[2018-02-10] MEDS: traMADol 50 MG TAB PO PRN (20:21)
[2018-02-10] MEDS: ROSUVASTATIN CALCIUM 20 MG TAB PO SCH (20:21)
[2018-02-10] MEDS: ASPIRIN EC 81 MG TAB PO SCH (20:21)
[2018-02-10] MEDS: SENNOSIDES/DOCUSATE SODIUM TAB PO SCH (20:21)
[2018-02-10] MEDS: OMEGA-3 FATTY ACIDS 1,000 MG CAP PO SCH (20:21)
[2018-02-11] MEDS: ACETAMINOPHEN 325 MG TAB PO PRN (00:26)
[2018-02-11] MEDS: oxyCODONE IR 5 MG TAB PO PRN (00:26)
[2018-02-11] MEDS: ALLOPURINOL 300 MG TAB PO SCH (08:51)
[2018-02-11] MEDS: LISINOPRIL 10 MG TAB PO SCH (08:52)
[2018-02-11] MEDS: SENNOSIDES/DOCUSATE SODIUM TAB PO SCH (08:52)
[2018-02-11] MEDS: PANTOPRAZOLE SODIUM 40 MG TAB PO SCH (08:53)
[2018-02-11] MEDS: ENOXAPARIN 40 MG/0.4 ML SYR SC SCH (08:53)
[2018-02-11 08:55] VITALS: BP 136/80
[2018-02-11] MEDS: traMADol 50 MG TAB PO PRN (10:45)
[2018-02-11] MEDS ORDERED: predniSONE 20 MG TAB PO SCH (11:45)
--- NOTE | 2018-02-11 11:57 | SOAPPROG ---
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 and daughter with patient. All feel comfortable taking him home. Explained the diagnosis and general therapy, which I recommend BRx6. To help with some of the symptoms, I recommend going on 60mg of prednisone daily along with acyclovir for prophylaxis. * Hypercalcemia and acute renal failure: This is resolved with pamidronate . Most likely it is related to lymphoma and will resolve with therapy. * Early dementia? Most likely either due to high ca+ and ARF or to medication. Seems back to baseline. Brain MRI shows just age related. Subjective: Mental status is clearing and reports he is back to normal. Still with dry cough and back pain but stable. Oxy IR makes him little confused and sleepy. Objective: Vital Signs Temp Pulse Resp BP Pulse Ox 36.4 C 88 20 136/80 H 93 02/11/18 08:00 02/11/18 08:00 02/11/18 08:00 02/11/18 08:00 02/11/18 08:00 Laboratory Results 02/08/18 04:36 02/09/18 04:18 02/10/18 02/11/18 02/12/18 05:59 05:59 05:59 Intake Total 400 2750 Output Total 440 200 Balance -40 2550 PT 14.5 SEC (12.0-15.0) 02/06/18 12:30 INR 1.11 (0.83-1.16) 02/06/18 12:30 Path: Grade 1/2 follicular NHL Physical Exam - Physical Exam General Appearance: no apparent distress Respiratory: decreased breath sounds (left base) Cardiac/Chest: regular rate, rhythm ICD10 Worksheet Patient Problems: Problems Problem Status Onset CAD (coronary artery disease), [place] coronary artery Acute Primary localized osteoarthritis of right hip Acute
[2018-02-11] MEDS ORDERED: ACYCLOVIR 400 MG TAB PO SCH (12:00)
[2018-02-11 12:04] LABS: PLATELET COUNT 169 10^3/uL (150-400)
--- NOTE | 2018-02-11 12:29 | SOAPPROG ---
ERIC Progress Note Assessment/Plan: Assessment/Plan: 82 Y M s/p superficial R axillary LN dissection, R femoral node bx. Seen with Dr. Calderon. Wounds intact. Pathology showing follicular lymphoma. Will follow peripherally. 02/11/18 12:26 Objective: Vital Signs Temp Pulse Resp BP Pulse Ox 36.4 C 88 20 136/80 H 93 02/11/18 08:00 02/11/18 08:00 02/11/18 08:00 02/11/18 08:00 02/11/18 08:00 Laboratory Results 02/11/18 11:58 02/10/18 02/11/18 02/12/18 05:59 05:59 05:59 Intake Total 400 2750 Output Total 440 200 Balance -40 2550 PT 14.5 SEC (12.0-15.0) 02/06/18 12:30 INR 1.11 (0.83-1.16) 02/06/18 12:30 ICD10 Worksheet Patient Problems: Problems Problem Status Onset CAD (coronary artery disease), [place] coronary artery Acute Primary localized osteoarthritis of right hip Acute
[2018-02-11 12:59] LABS: HEPATITIS B SURFACE ANTIGEN NEGATIVE (NEGATIVE)
[2018-02-11 13:19] LABS: HEPATITIS B CORE AB IGM NEGATIVE (NEGATIVE); HEPATITIS C ANTIBODY TOTAL NEGATIVE (NEGATIVE); HIV TYPE 1 AND 2 NEGATIVE (NEGATIVE)
--- NOTE | 2018-02-11 18:02 | GDS ---
DISCHARGE DIAGNOSES: 1. New diagnosis follicular lymphoma. 2. Hypercalcemia of malignancy. 3. Acute renal failure. 4. Metabolic encephalopathy due to hypercalcemia and acute renal failure. 5. Coronary disease status post stent. 6. Hypertension. HISTORY: This is an 82-year-old male, admitted to the hospital after being found to have extensive r etroperitoneal lymphadenopathy that was causing some pain. He underwent biopsy. Pathology showed a follicular lymphoma. He was seen by Oncology. Oncology recommends prednisone 60 mg p.o. daily for 5 d ays post discharge. He will initiate chemotherapy soon as an outpatient. Initially there were some concerns regarding his mental status. He was weak and we thought he was go ing to need rehab. He scored only 20/30 on his SLUMS. however stated this was not his baseline and it was probably a metabolic encephalopathy due to his hypercalcemia and acute renal failure. Onc e he mentally cleared, he was able to walk without difficulty. Can clearly go home independently. DISCHARGE MEDICATIONS: Please see computerized record for full detailed list. New medications: 1. Prednisone 60 mg p.o. daily for 4 more days. 2. Allopurinol 300 mg p.o. daily. 3. Acyclovir 200 mg p.o. twice daily. 4. Ultram 50 mg p.o. q.6 hours as needed. 5. Lisinopril 10 mg p.o. daily. ADDITIONAL DISCHARGE INSTRUCTIONS: Follow up with Dr. Duong at [facility] to initi ate chemotherapy. Greater than 30 minutes' time spent arranging this discharge. Patient seen and examined by me on day of discharge. /[id number]/MODL
== END 2018-02-11 14:00 | disposition home or self-care (01) | DRG 823 ==
LOC: UNDOADMIN 10:34 → F1N 10:34
PROVIDERS: ADMIT Internal Medicine; ATTEND Internal Medicine
PROC: 07B50ZX Excision of Right Axillary Lymphatic, Open Approach, Diagnostic (ICD-10-PCS; principal; 2018-02-06 17:15)
PROC: 07BF0ZX Excision of Right Lower Extremity Lymphatic, Open Approach, Diagnostic (ICD-10-PCS; principal; 2018-02-06 17:15)
DX: C82.98 Follicular lymphoma, unspecified, lymph nodes of multiple sites (principal); G93.41 Metabolic encephalopathy; N17.9 Acute kidney failure, unspecified; E83.52 Hypercalcemia; I25.10 Atherosclerotic heart disease of native coronary artery without angina pectoris; I10 Essential (primary) hypertension; E78.5 Hyperlipidemia, unspecified; K21.9 Gastro-esophageal reflux disease without esophagitis; Z23 Encounter for immunization; Z66 Do not resuscitate; Z96.653 Presence of artificial knee joint, bilateral; Z96.643 Presence of artificial hip joint, bilateral; Z95.5 Presence of coronary angioplasty implant and graft
CPT/HCPCS: 82784-90; 83625-90; 86705-90; 88184-90; 88185-91; 92507-GN; 92523-GN; 92610-GN; 97116-GP; 97161-GP; 97165-GO; 97530-GP; 97535-GO; A9585; G0008; G0472; G8978-GP-CK; G8979-GP-CJ; G8980-GP-CI; G8984-GO-CJ; G8985-GO-CI; G8996-GN-CI; G8997-GN-CI; J1170; J1650; J2060; J2430; J2704; J3010; J7512

== ENCOUNTER 2018-04-27 17:25 | Inpatient (IN) | payer OTHER ==
--- NOTE | 2018-04-27 18:12 | EDPHY ---
H & P Stated Complaint: fever 102 cancer pt chills Time Seen by Provider: 04/27/18 17:39 HPI/ROS: CHIEF COMPLAINT: Fever, chills, currently being treated for lymphoma HISTORY OF PRESENT ILLNESS: The patient presents the ED with a several hour history of fever and chills. The patient reports a temperature to 102 degrees. The patient denies cough, dysuria or diarrhea. The patient is currently receiving chemotherapy for recently diagnosed lymphoma. Patient did have blood work performed at his oncologist's office earlier today which demonstrated no evidence of neutropenia. The patient was asymptomatic at the time of that visit. The patient denies rash. He denies acute abdominal pain. He denies any acute complaints aside from feeling fatigued. REVIEW OF SYSTEMS: A comprehensive 10 point review of systems is otherwise negative aside from elements mentioned in the history of present illness. Source: Patient, Family - Personal History Current Tetanus Diphtheria and Acellular Pertussis (TDAP): Yes - Medical/Surgical History Hx Asthma: No Hx Chronic Respiratory Disease: No Hx Diabetes: No Hx Cardiac Disease: Yes Hx Renal Disease: No Hx Cirrhosis: No Hx Alcoholism: No Hx HIV/AIDS: No Hx Splenectomy or Spleen Trauma: No Other PMH: bilat knee surgery, L hip total replacement x2, right hip replacement , cardiac stents, cad, gerd, cataract surgery - Social History Smoking Status: Never smoked - Physical Exam Exam: General Appearance: Alert, no distress Eyes: Pupils equal and round no pallor or injection ENT, Mouth: Mucous membranes moist Respiratory: Rhonchi bilateral lower lobes Cardiovascular: Regular rate and rhythm Gastrointestinal: Abdomen is soft and nontender, no masses, bowel sounds normal Neurological: 5/5 strength all 4 extremities Skin: Warm and dry, no rashes Musculoskeletal: Neck is supple nontender Extremities: symmetrical, full range of motion Constitutional: Initial Vital Signs Temperature (C) 36.7 C 04/27/18 17:30 Heart Rate 104 H 04/27/18 17:30 Respiratory Rate 20 04/27/18 17:30 Blood Pressure 141/91 H 04/27/18 17:30 O2 Sat (%) 91 L 04/27/18 17:30 O2 Delivery Mode Room Air Allergies/Adverse Reactions: No Known Allergies Allergy (Verified 04/27/18 17:27) Home Medications: Medication Instructions Recorded Aspirin EC [Aspirin EC 81 mg (*)] 81 mg PO HS 01/02/16 [place]-3 Fatty Acids [Fish Oil 1000 2,000 mg PO HS 01/02/16 mg (*)] Nitroglycerin [Nitrostat 0.4 mg 0.4 mg SL PRN PRN #0 btl 01/06/16 (*)] Pantoprazole Sodium [Protonix 40mg 40 mg PO DAILY #0 tab 01/06/16 (*)] Cholecalciferol Vit D3 [Vitamin D3 4,000 units PO HS 05/15/17 2000 units tab (OTC)] Rosuvastatin Calcium [Crestor 20mg 20 mg PO HS 05/15/17 (*)] Ibuprofen [Motrin (*)] 200 mg PO DAILY PRN 02/06/18 Acyclovir [Zovirax 200 mg (*)] 200 mg PO BID 30 Days #60 cap 02/11/18 Allopurinol [Allopurinol 300 MG 300 mg PO DAILY #30 tab 02/11/18 (RX)] Medical Decision Making - Diagnostics Imaging Results: Imaging Impressions Chest X-Ray 04/27/18 18:10 Impression: 1. Suspect airways disease. Left basilar opacity, atelectasis versus pneumonia with clinical correlation recommended. 2. Low-grade congestive failure/fluid overload without juancarlos pulmonary edema. 3. See above report for additional findings. Procedures: Procedure: Ultrasound guidance central venous catheter placement Using the linear probe covered in a sterile sheath, a short axis of the vein was obtained. The vein was completely compressible and was identified as separate from the adjacent non-compressible arterial structure. Under real- time guidance, the introducer needle was observed up to the vein, and then punctured it. Indication: Septic shock Risks, benefits, alternatives discussed with the patient including but not limited to bleeding, infection, vascular injury, and collapsed lung and consent obtained. A timeout was observed. Full maximal sterile barrier technique was used including cap, gown, sterile gloves, large sheet, hand washing and chlorhexidine prep. The area was anesthetized with 1% lidocaine. A 7 [place] triple lumen was placed in the right internal jugular vein using standard Seldinger technique. There were no complications. Blood return low pressure, dark blood. Patient tolerated procedure well. CXR results: Appropriate line placement, and no pneumothorax. X-ray was interpreted by myself. Radiologist interpretation is pending. The procedure was performed by myself. ED Course/Re-evaluation: Patient presents to the ED with fever and shaking chills. He has a history of lymphoma and is currently being treated with chemotherapy. The patient arrived and was noted to be tachycardic and hypotensive. He had a fever of 102 degrees prior to arrival. The patient had an IV established. A screening lactic acid was ordered and found to be 6.9. The patient was declared having severe sepsis and septic shock following his lactic acid test. The patient received 30 milligram/kilogram bolus and continued to have ongoing hypotension. The patient had a central line placed by myself. The patient was started on norepinephrine at 7:30 p.m. Consultation was made with the hospitalist service for admission. The patient was started on Zosyn empirically. A repeat venous lactic acid was ordered at 7:30 p.m. I spoke with Dr. Gardner who will admit the patient from the hospitalist service. Repeat venous lactic acid is now 2.7 following aggressive IV fluid rehydration. Differential Diagnosis: Differential diagnosis considered includes sepsis, severe sepsis, septic shock Critical Care Time: Critical care time exclusive of procedures and exclusive of the PA's time was 55 minutes, performed by myself, Noel Augustine MD. Patient presents to the ED with septic shock and hypotension. The patient required broad-spectrum antibiotics, central line placement, aggressive IV fluid rehydration and vasopressors. Patient will be admitted to the intensive care unit. - Data Points Laboratory Results: Laboratory Results 04/27/18 17:55 04/27/18 17:55 04/27/18 04/27/18 04/27/18 18:30 17:55 17:55 WBC RBC Hgb Hct MCV MCH MCHC RDW Plt Count MPV Neut % (Auto) Lymph % (Auto) [place] % (Auto) Eos % (Auto) Baso % (Auto) Nucleat RBC Rel Count Absolute Neuts (auto) Absolute Lymphs (auto) Absolute Monos (auto) Absolute Eos (auto) Absolute Basos (auto) Absolute Nucleated RBC Immature Gran % Seg Neutrophils % Band Neutrophils % Lymphocytes % Monocytes % Eosinophils % Basophils % Metamyelocytes % Myelocytes % Promyelocytes % Blast Cells % Immature Gran # Absolute Seg Neuts Absolute Band Neuts Absolute Lymphocytes Absolute Monocytes Absolute Eosinophils Absolute Basophils Absolute Metamyelocyte Absolute Myelocytes Absolute Promyelocytes Absolute Plasma Cells Nucleated RBCs Absolute Blast Cells Plasma Cells % Platelet Estimate Oval Macrocytes Echinocytes Elliptocytes VBG Lactic Acid 6.9 mmol/L H mmol/L (0.7-2.1) Sodium Potassium Chloride Carbon Dioxide Anion Gap BUN Creatinine Estimated GFR Glucose Calcium Procalcitonin 0.36 ng/mL H ng/mL (0.02-0.10) Nasal Influenza A PCR Pending Nasal Influenza B PCR Pending 04/27/18 04/27/18 17:55 17:55 WBC 4.81 10^3/uL 10^3/uL (3.80-9.50) RBC 3.66 10^6/uL L 10^6/uL (4.40-6.38) Hgb 12.1 g/dL L g/dL (13.7-17.5) Hct 35.1 % L % (40.0-51.0) MCV 95.9 fL fL (81.5-99.8) MCH 33.1 pg pg (27.9-34.1) MCHC 34.5 g/dL g/dL (32.4-36.7) RDW 16.4 % H % (11.5-15.2) Plt Count 113 10^3/uL L 10^3/uL (150-400) MPV 11.2 fL fL (8.7-11.7) Neut % (Auto) Not Reported Lymph % (Auto) Not Reported [place] % (Auto) Not Reported Eos % (Auto) Not Reported Baso % (Auto) Not Reported Nucleat RBC Rel Count Not Reported Absolute Neuts (auto) Not Reported Absolute Lymphs (auto) Not Reported Absolute Monos (auto) Not Reported Absolute Eos (auto) Not Reported Absolute Basos (auto) Not Reported Absolute Nucleated RBC Not Reported Immature Gran % Not Reported Seg Neutrophils % 91.0 % % Band Neutrophils % 1.0 % % Lymphocytes % 6.0 % % Monocytes % 0.0 % % Eosinophils % 0.0 % % Basophils % 1.0 % % Metamyelocytes % 1.0 % % Myelocytes % 0.0 % % Promyelocytes % 0.0 % % Blast Cells % 0.0 % % Immature Gran # Not Reported Absolute Seg Neuts 4.38 10^3/uL 10^3/uL (1.70-6.50) Absolute Band Neuts 0.05 10^3/uL 10^3/uL (0.00-0.70) Absolute Lymphocytes 0.29 10^3/uL L 10^3/uL (1.00-3.00) Absolute Monocytes 0.00 10^3/uL L 10^3/uL (0.30-0.80) Absolute Eosinophils 0.00 10^3/uL L 10^3/uL (0.03-0.40) Absolute Basophils 0.05 10^3/uL 10^3/uL (0.02-0.10) Absolute Metamyelocyte 0.05 10^3/mL H 10^3/mL (0.00-0.00) Absolute Myelocytes 0.00 10^3/mL 10^3/mL (0.00-0.00) Absolute Promyelocytes 0.00 10^3/uL 10^3/uL (0.00-0.00) Absolute Plasma Cells 0.00 10^3/uL 10^3/uL (0.00-0.00) Nucleated RBCs 0 /100 WBC /100 WBC (0-0) Absolute Blast Cells 0.00 10^3/uL 10^3/uL (0.00-0.00) Plasma Cells % 0.0 % % Platelet Estimate DECREASED L (ADEQ) Oval Macrocytes 1+ H Echinocytes 1+ H Elliptocytes 1+ H VBG Lactic Acid Sodium 130 mEq/L L mEq/L (135-145) Potassium 3.5 mEq/L mEq/L (3.5-5.2) Chloride 106 mEq/L mEq/L (97-110) Carbon Dioxide 14 mEq/l L mEq/l (22-31) Anion Gap 10 mEq/L mEq/L (6-14) BUN 33 mg/dL H mg/dL (7-23) Creatinine 1.3 mg/dL mg/dL (0.7-1.3) Estimated GFR 53 Glucose 115 mg/dL H mg/dL (70-100) Calcium 9.3 mg/dL mg/dL (8.5-10.4) Procalcitonin Nasal Influenza A PCR Nasal Influenza B PCR Medications Given: Discontinued Medications Sodium Chloride (Ns) 2,200 mls @ 4,400 mls/hr 30 ml/kg infuse over 30 min ( 2200 ml) IV EDNOW ONE PRN Reason: Protocol Stop: 02/04/19 18:58 Last Admin: 04/27/18 18:50 Dose: 2,200 mls Norepinephrine 4 mg/ Sodium (Chloride) 504 mls @ 0 mls/hr IV EDNOW ONE; Titrate PRN Reason: Protocol Stop: 04/27/18 19:21 Last Admin: 04/27/18 19:39 Dose: 504 mls Departure - Departure Disposition: [facility] Inpatient Acute Clinical Impression: Septic shock, Lymphoma Condition: Critical
[2018-04-27 18:21] LABS: PLATELET COUNT 113 10^3/uL (150-400)
[2018-04-27] MEDS ORDERED: NS 2,200 ML IV ONE (18:29)
[2018-04-27] MEDS ORDERED: PIPERACILLIN/TAZO 4.5 GM/DEX 100 ML IV ONE (18:39)
[2018-04-27] MEDS ORDERED: NOREPINEPHRINE BITARTRATE 4 MG in NS 500 ML IV ONE (19:20)
[2018-04-27] MEDS ORDERED: ACETAMINOPHEN 325 MG TAB PO PRN (20:01)
[2018-04-27] MEDS ORDERED: ONDANSETRON 4 MG/2 ML VIAL IVP PRN (20:01)
[2018-04-27] MEDS ORDERED: ONDANSETRON DISINTEGRATING 4 MG TAB PO PRN (20:01)
--- NOTE | 2018-04-27 20:13 | PDGENHP ---
History and Physical - Chief Complaint Fevers, chills - History of Present Illness This is an 82 y/o male who presented to the ER with c/o fevers, chills, and shakes. He was recently admitted in January 2018 and diagnosed with retroperitoneal lymphadenopathy with a biopsy confirming follicular lymphoma. His oncologist is Dr. Duong and has received 2 rounds of chemotherapy. He was seen at Dr. Duong's office today for labwork and nothing seemed to be out of the ordinary per his and son who were at the bedside during evaluation. They were driving back home from the appointment when he began to shake and felt like he had a fever. Max temperature was 102. He came to the ER and was found to be tachycardic and hypotensive with lactic acid 6.9. CXR reveals left basilar opacity, atelectasis vs pneumonia, low-grade congestive failure/fluid overload w/o juancarlos pulmonary edema. Past Medical History 1. Hypertension 2. Follicular Lymphoma (currently receiving chemotherapy) 3. CAD s/p PCI 2015 4. Hyperlipidemia 5. GERD Past Surgical History 1. Bilateral total hip replacements 2. Bilateral total knee replacements Social 1. and son at bedside 2. Denies tobacco or illicit drug use. Occasionally drinks a beer. History Information - Allergies/Home Medication List Allergies/Adverse Reactions: No Known Allergies Allergy (Verified 04/27/18 17:27) Home Medications: Rosuvastatin Calcium [Crestor 20mg (*)] 20 mg PO DAILY 05/15/17 [Last Taken 07/10] Hydrocodone/APAP 5/325 [[place] 5/325 (*)] 1 - 2 tab PO Q4H PRN 04/27/18 [Last Taken Unknown] Lenalidomide [Revlimid] 10 mg PO DAILY 04/27/18 [Last Taken 04/26/18] Mirtazapine [Mirtazapine] 15 mg PO HS PRN 04/27/18 [Last Taken 04/26/18] Potassium Chloride [Klor-Con M20] 20 meq PO DAILY 04/27/18 [Last Taken 04/27/18] morphINE IR [morphINE IR 15 mg (*)] 15 mg PO Q3 PRN 04/27/18 [Last Taken Unknown ] I have personally reviewed and updated: family history, medical history, social history, surgical history Past Medical History: See HPI list - Surgical History Additional surgical history: See HPI list - Family History Positive for: non-pertinent - Social History Smoking Status: Never smoked Alcohol Use: Occasionally Drug Use: None Review of Systems Review of Systems: ROS: 10pt was reviewed & negative except for what was stated in HPI & below Constitutional: Reports: chills, fever, malaise EENMT: Reports: no symptoms Cardiac: Reports: no symptoms Respiratory: Reports: no symptoms Gastrointestinal: Reports: no symptoms Genitourinary: Reports: no symptoms Muscolosketal: Reports: no symptoms Skin: Reports: no symptoms Neurological: Reports: weakness Hematologic/Lymphatic: Reports: no symptoms Immunologic/Allergy: Reports: no symptoms Physical Exam Physical Exam: Lab data and imaging were reviewed. Case discussed with admitting physician, Dr. Gume Gardner. WBC: 4.81 RBC/H/H: 3.66/12.1/35.1 Na: 130 K: 3.5 BUN/Cr: 33/1.3 Lactic Acid: 6.9 --> received bolus --> 2.7 Procalcitonin: 0.36 CXR: See HPI Temp Pulse Resp BP Pulse Ox 36.7 C 104 H 20 141/91 H 91 L 04/27/18 17:30 04/27/18 17:30 04/27/18 17:30 04/27/18 17:30 04/27/18 17:30 Constitutional: no apparent distress, not in pain, other (Pale in appearance) Eyes: PERRL, anicteric sclera, EOMI Ears, Nose, Mouth, Throat: moist mucous membranes, hearing normal, ears appear normal, no oral mucosal ulcers Cardiovascular: regular rate and rhythym, no murmur, rub, or gallop, tachycardia Peripheral Pulses: 1+: dorsalis-pedis (R) (Radial 2+), dorsalis-pedis (L) ( Radial 2+) Respiratory: rhonchi (Bilateral lower bases) Gastrointestinal: normoactive bowel sounds, soft, non-tender abdomen, no palpable masses Genitourinary: no bladder fullness, no bladder tenderness Skin: warm, normal color, no rashes or abrasions, no fluctuance, no induration, No mottled Musculoskeletal: full muscle strength, no muscle tenderness, normal joint ROM, no joint effusions Neurologic: AAOx3, sensation intact bilaterally, CN II-XII Intact Psychiatric: interacting appropriately, not anxious, not encephalopathic, thought process linear Lymph, Heme, Immunologic: no cervical LAD, no supraclavicular LAD Lab Data & Imaging Review 04/27/18 17:55 04/27/18 17:55 WBC 4.81 10^3/uL (3.80-9.50) 04/27/18 17:55 RBC 3.66 10^6/uL (4.40-6.38) L 04/27/18 17:55 Hgb 12.1 g/dL (13.7-17.5) L 04/27/18 17:55 Hct 35.1 % (40.0-51.0) L 04/27/18 17:55 MCV 95.9 fL (81.5-99.8) 04/27/18 17:55 MCH 33.1 pg (27.9-34.1) 04/27/18 17:55 MCHC 34.5 g/dL (32.4-36.7) 04/27/18 17:55 RDW 16.4 % (11.5-15.2) H 04/27/18 17:55 Plt Count 113 10^3/uL (150-400) L 04/27/18 17:55 MPV 11.2 fL (8.7-11.7) 04/27/18 17:55 Neut % (Auto) Not Reported 04/27/18 17:55 Lymph % (Auto) Not Reported 04/27/18 17:55 [place] % (Auto) Not Reported 04/27/18 17:55 Eos % (Auto) Not Reported 04/27/18 17:55 Baso % (Auto) Not Reported 04/27/18 17:55 Nucleat RBC Rel Count Not Reported 04/27/18 17:55 Absolute Neuts (auto) Not Reported 04/27/18 17:55 Absolute Lymphs (auto) Not Reported 04/27/18 17:55 Absolute Monos (auto) Not Reported 04/27/18 17:55 Absolute Eos (auto) Not Reported 04/27/18 17:55 Absolute Basos (auto) Not Reported 04/27/18 17:55 Absolute Nucleated RBC Not Reported 04/27/18 17:55 Immature Gran % Not Reported 04/27/18 17:55 Seg Neutrophils % 91.0 % 04/27/18 17:55 Band Neutrophils % 1.0 % 04/27/18 17:55 Lymphocytes % 6.0 % 04/27/18 17:55 Monocytes % 0.0 % 04/27/18 17:55 Eosinophils % 0.0 % 04/27/18 17:55 Basophils % 1.0 % 04/27/18 17:55 Metamyelocytes % 1.0 % 04/27/18 17:55 Myelocytes % 0.0 % 04/27/18 17:55 Promyelocytes % 0.0 % 04/27/18 17:55 Blast Cells % 0.0 % 04/27/18 17:55 Immature Gran # Not Reported 04/27/18 17:55 Absolute Seg Neuts 4.38 10^3/uL (1.70-6.50) 04/27/18 17:55 Absolute Band Neuts 0.05 10^3/uL (0.00-0.70) 04/27/18 17:55 Absolute Lymphocytes 0.29 10^3/uL (1.00-3.00) L 04/27/18 17:55 Absolute Monocytes 0.00 10^3/uL (0.30-0.80) L 04/27/18 17:55 Absolute Eosinophils 0.00 10^3/uL (0.03-0.40) L 04/27/18 17:55 Absolute Basophils 0.05 10^3/uL (0.02-0.10) 04/27/18 17:55 Absolute Metamyelocyte 0.05 10^3/mL (0.00-0.00) H 04/27/18 17:55 Absolute Myelocytes 0.00 10^3/mL (0.00-0.00) 04/27/18 17:55 Absolute Promyelocytes 0.00 10^3/uL (0.00-0.00) 04/27/18 17:55 Absolute Plasma Cells 0.00 10^3/uL (0.00-0.00) 04/27/18 17:55 Nucleated RBCs 0 /100 WBC (0-0) 04/27/18 17:55 Absolute Blast Cells 0.00 10^3/uL (0.00-0.00) 04/27/18 17:55 Plasma Cells % 0.0 % 04/27/18 17:55 Platelet Estimate DECREASED (ADEQ) L 04/27/18 17:55 Oval Macrocytes 1+ H 04/27/18 17:55 Echinocytes 1+ H 04/27/18 17:55 Elliptocytes 1+ H 04/27/18 17:55 VBG Lactic Acid 2.7 mmol/L (0.7-2.1) H 04/27/18 19:24 Sodium 130 mEq/L (135-145) L 04/27/18 17:55 Potassium 3.5 mEq/L (3.5-5.2) 04/27/18 17:55 Chloride 106 mEq/L (97-110) 04/27/18 17:55 Carbon Dioxide 14 mEq/l (22-31) L 04/27/18 17:55 Anion Gap 10 mEq/L (6-14) 04/27/18 17:55 BUN 33 mg/dL (7-23) H 04/27/18 17:55 Creatinine 1.3 mg/dL (0.7-1.3) 04/27/18 17:55 Estimated GFR 53 04/27/18 17:55 Glucose 115 mg/dL (70-100) H 04/27/18 17:55 Calcium 9.3 mg/dL (8.5-10.4) 04/27/18 17:55 Procalcitonin 0.36 ng/mL (0.02-0.10) H 04/27/18 17:55 Nasal Influenza A PCR NEGATIVE FOR FLU A (NEGATIVE) 04/27/18 18:30 Nasal Influenza B PCR NEGATIVE FOR FLU B (NEGATIVE) 04/27/18 18:30 Assessment & Plan Plan: 82 y/o presenting to the emergency room in septic shock with fevers, chills, and body shakes. Subsequently, CXR suggestive of pneumonia however afebrile. 1. Septic shock secondary to suspected pneumonia: Initially lactic acid 6.9. Procalcitonin 0.36 -Received 30 mg/kg bolus in ER; continued to be hypotensive -Central line placed -Levophed was initiated in ER -Repeat lactic acid after above actions was 2.7 -Zosyn initiated in ER; will continue Q6H + add Vancomycin -Continue aggressive IVF; rechecking lactic acid at midnight tonight -Cont tele/pulse ox monitoring -Blood cultures and UA pending 2. Hyponatremia (130) -Aggressive IVF -CBC tomorrow 3. Hypertension: considering his initial hypotensive state, will hold HTN medications for now. May resume when pt has been stabilized. 4. GERD: on protonix. 5. Hyperlipidemia: crestor 6. Pain medications: use with caution should his BP be low. Diet: Regular Code: Full VTE ppx: SCDs Dispo: Admit to inpatient
[2018-04-27] MEDS ORDERED: NITROGLYCERIN 0.4 MG BTL SL PRN (20:26)
--- NOTE | 2018-04-27 20:40 | HOSPPROG ---
Hospitalist Progress Note Assessment/Plan: I have personally seen and evaluated Mr. Jose Petty. I agree with the assessment and plan as outline by PAImani, in a separate note. Objective: Vital Signs Temp Pulse Resp BP Pulse Ox 36.7 C 120 H 37 H 88/55 L 92 04/27/18 17:30 04/27/18 19:00 04/27/18 19:00 04/27/18 19:00 04/27/18 19:00 04/26/18 04/27/18 04/28/18 05:59 05:59 05:59 Intake Total 2300 Balance 2300 ICD10 Worksheet Patient Problems: Problems Problem Status Onset Lymphoma Acute Septic shock Acute CAD (coronary artery disease), [place] coronary artery Acute Primary localized osteoarthritis of right hip Acute
[2018-04-27] MEDS: ACYCLOVIR 200 MG CAP PO SCH (21:48)
[2018-04-27] MEDS ORDERED: VANCOMYCIN HCL/NORMAL SALINE 250 ML IV SCH (22:00)
[2018-04-28] MEDS: POTASSIUM Cl (KCl) 100 ML IV SCH ×2 (00:42→01:47)
[2018-04-28] MEDS: PIPERACILLIN/TAZO 4.5 GM/DEX 100 ML IV SCH ×4 (02:33→20:13)
[2018-04-28 03:57] LABS: PLATELET COUNT 85 10^3/uL (150-400)
[2018-04-28] MEDS ORDERED: POTASSIUM CL 20 MEQ TAB PO SCH (09:00)
--- NOTE | 2018-04-28 09:00 | PDMN ---
Medical Necessity Medical necessity: [facility] M160 Sepsis: 82 yo in septic shock likely d/t pneumonia. Lactic acid 6.9. Pt tachycardic and tachypneac. Imaging shows juancarlos pulmonary edema. Central line placed, IV pressors started, aggressive IV fluids and IV antibx started. IP status for hemodynamic instability as pt will need >48 hours for ongoing monitoring and tx of the above. Hx lymphoma currently on chemo, CAD, HTN, HLD.
[2018-04-28] MEDS ORDERED: NOREPINEPHRINE BITARTRATE 4 MG in NS 500 ML IV SCH (09:30)
[2018-04-28] MEDS: PANTOPRAZOLE SODIUM 40 MG TAB PO SCH (09:46)
[2018-04-28] MEDS: ROSUVASTATIN CALCIUM 20 MG TAB PO SCH (09:46)
[2018-04-28] MEDS: ACYCLOVIR 200 MG CAP PO SCH ×2 (09:46→20:13)
--- NOTE | 2018-04-28 10:02 | GCON ---
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 HISTORY: The patient is an extremely pleasant 82-year-old white male with a past medical history of gastroesophageal reflux disease, coronary artery disease, hyperlipidemia, and hypertension. He has r ecently been diagnosed with follicular lymphoma, for which he has been receiving chemotherapy. [facility] on the day of admission he was found to have temperature up to 102. He was taken to the emergency room, was subsequently found to have pneumonia as well as a high lactate. In discussion with the adalgisa lopez, he states he feels markedly improved. He has received IV fluids as well as IV antibiotics. H e denies any cough or production of sputum. There is no chest pain, pleuritic-type chest pain or ang dank equivalent. There is no fever or night sweats. He has a good appetite and is currently ordering breakfast. REVIEW OF SYSTEMS: A 10-point review of systems is performed and negative except for what is listed in HPI. PAST MEDICAL HISTORY: Significant for gastroesophageal reflux disease, hyperlipidemia, coronary missy ry disease and hypertension as well as follicular lymphoma for which he is on chemotherapy. PAST SURGICAL HISTORY: He has had bilateral hip replacements, bilateral knee replacements. SOCIAL HISTORY: No history of tobacco use. No history of alcohol use. He is with children. 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 He has lived in [place] for 5 years. Is bush[place] g[place] from [facility], but has spent much time in [place]. ALLERGIES: No known allergies to medications. FAMILY HISTORY: Noncontributory. MEDICATIONS: At home include morphine, potassium, mirtazapine, Revlimid, Crestor, and [place]. PHYSICAL EXAM: VITAL SIGNS: Blood pressure 105/46, pulse 73, respirations 20, temperature 36.3, oxy gen saturation 96% on room air. GENERAL: He is a well-developed, well-nourished, elderly white male who is resting comfortably without supplemental oxygen. HEENT: Eyes are PERRLA, EOMI. Throat show s no erythema or tonsillar hypertrophy. NECK: Supple. No cervical adenopathy. HEART: Regular rat e and rhythm with a 2/6 systolic murmur left sternal border without radiation. LUNGS: Diminished br eath sounds. A few left basilar crackles but no wheeze. ABDOMEN: Soft, nontender. Bowel sounds pr esent in all 4 quadrants. EXTREMITIES: No clubbing, cyanosis, or edema. LABORATORIES: White count is 3.8, hemoglobin 10, hematocrit 30, platelet count is 85. Sodium 136, p otassium 3.6, chloride 113, CO2 is 18, BUN is 29, creatinine 1.3, glucose is 71. Urinalysis is negat [place]. Influenza A and B are negative. Chest x-ray shows central line in good position. There is a l eft basilar infiltrate. IMPRESSION: 1. Community-acquired pneumonia in an immunocompromised host. 2. Sepsis with septic shock, resolved. 3. Hyponatremia. 4. History of coronary artery disease. 5. History of hypertension. 6. Hyperlipidemia. RECOMMENDATIONS: 1. Agree with current antibiotic coverage. 2. The patient is currently off pressors. 3. Adequate nutrition. 4. DVT and PE prophylaxis. 5. Stress ulcer prophylaxis. 6. Out of bed to chair. 7. PT and OT. 8. If he remains off pressors, would recommend discharge to floor later on today. /[id number]/MODL
--- NOTE | 2018-04-28 10:25 | HOSPPROG ---
Hospitalist Progress Note Assessment/Plan: DIAGNOSES: * Hypotension with dyspnea in a Cancer pt (high suspicion for PE) * ? Pneumonia -I have some doubts about pneumonia: no fever, normal wbc, no cough, no URI sxs, and his CXR to me looks like L lung basilar atelectasis due to scoliosis; Has very mild procalcition elevation, but this is nonspecific -also have significant doubt about diagnosis of septic shock as I do not find evidence of infection so far * Follicular lymphoma on current therapy * History of coronary disease with stent 2 years ago * Chronic hypertension comes in with hypotension * Hyponatremia PLANS: * Stat CT scan of chest Seen by me on hospitalist rounds as well as multidisciplinary rounds Reviewed in detail with Dr. 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: Exam: alert oriented relaxed skin warm dry color ok resps mildly tachypneic but not labored lungs diminished but clear BSs with some evidence of further decreased breath sounds at left lung base heart regular abd soft nondistended nontender, bowel sounds present limbs warm, no edema iv site ok Imaging: I reviewed his chest x-ray from the ER yesterday which to me shows evidence of scoliosis and probably related atelectasis at the left lung base though could not rule out an effusion there; I do not see anything that actually looks like alveolar infiltrate to me Microbiology: Nothing in cultures to this point Lab data: White blood cell count remains normal in fact more normal than yesterday Worsening anemia and low platelets likely related to his lymphoma and its treatment Serum lactate has normalized CO2 has come up from 14 to 18 on chemistry Some hypomagnesemia Hyponatremia resolved Objective: Vital Signs Temp Pulse Resp BP Pulse Ox 36.3 C 75 25 H 101/49 L 95 04/28/18 08:00 04/28/18 10:00 04/28/18 10:00 04/28/18 10:00 04/28/18 10:00 Laboratory Results 04/28/18 03:50 04/28/18 03:50 02/04/19 02/05/19 02/06/19 06:59 06:59 06:59 Intake Total 4174 Output Total 600 350 Balance 3574 -350 - Time Spent With Patient Time Spent with Patient: greater than 35 minutes Time Spent with Patient: Greater than 35 minutes spent on this patients care, greater than 50% of time spent counseling, educating, and coordinating care regarding the above mentioned plan. ICD10 Worksheet Patient Problems: Problems Problem Status Onset Lymphoma Acute Septic shock Acute CAD (coronary artery disease), [place] coronary artery Acute Primary localized osteoarthritis of right hip Acute
[2018-04-28] MEDS ORDERED: IOHEXOL 300 mgI/ML (OMNIPAQUE) 150 ML BTL IV ONE (10:54)
[2018-04-28] MEDS ORDERED: MAGNESIUM SULF 2 GM/WATER 50 ML IV ONE (11:00)
[2018-04-28] MEDS ORDERED: HEPARIN 10,000 UNIT/10 ML MDV (1,000 UNIT/ML) IVP PRN (11:39)
[2018-04-28] MEDS: HEPARIN/DEXTROSE 500 ML IV SCH (12:08)
[2018-04-28 12:16] LABS: PLATELET COUNT 85 10^3/uL (150-400)
[2018-04-28] MEDS: NS 1,000 ML IV SCH (12:21)
[2018-04-28 12:32] LABS: INR 1.27 (0.83-1.16); PROTIME(PATIENT) 16.1 SEC (12.0-15.0)
--- NOTE | 2018-04-28 15:20 | GCON ---
[f rep st] CONSULTATION MEDICAL ONCOLOGY FOLLOWUP CONSULTATION DATE OF CONSULTATION: 04/28/2018 REFERRING PHYSICIAN: Dixon Acosta MD REASON FOR CONSULTATION: Ongoing management of follicular B-cell lymphoma and new diagnosis of pulmo nary embolism. RECOMMENDATIONS: 1. Agree with full anticoagulation as you are doing for his pulmonary embolism in the right lower lo be. As long as his platelet count is over 50,000, there is no need to modify the usual recommendatio ns. 2. I think it would be fine to place him on one of the novel oral anticoagulants once he is stabiliz ed from his acute pulmonary embolism. 3. Will monitor the patient's platelet count. I suspect that his current decrease is due to consump tion and underproduction, rather than ITP. His usual platelet count runs approximately 150,000. His treatment as an outpatient has been with Rituxan and Revlimid. His most recent dose of Rituxan was on March,. I do not expect further reduction in his platelet count based on his treat ment for his lymphoma alone. ASSESSMENT: This 82-year-old gentleman with a recent diagnosis of stage 3b follicular lymphoma, is n ow admitted with shaking chills and malaise. Initially when he came into the hospital, he was felt t o have a pneumonia, but further evaluation with CT angiogram showed the patient has a new right lower lobe pulmonary embolism. This is his first episode of VTE as far as he is aware. He has had no swe lling or pain in arm or leg. He has been started on anticoagulation with heparin at this time. Of c oncern was the fact that his platelets had fallen from 117,000 yesterday to 85,000 today. The patien t is not having any obvious bleeding and had a platelet count of 85,000. I think he can be fully ant icoagulated as one would do normally. The patient's lymphoma has actually been fairly refractory to therapy. He will likely require anothe r change in therapy and this will be decided as an outpatient with his primary oncologist, Dr. Tami boyd. HISTORY OF PRESENT ILLNESS: Please see assessment. PAST MEDICAL HISTORY: Remarkable for hypertension, coronary artery disease, and hyperlipidemia. PAST SURGICAL HISTORY: Remarkable for a bilateral hip replacement x2. SOCIAL HISTORY: Patient is a nonsmoker. He is . REVIEW OF SYSTEMS: Remarkable for occasional epistaxis. He denies any hemoptysis. He has some shor tness of breath. He had rigors yesterday, which have stopped. He reports no pain in arm or leg. Tx s 10-system review is otherwise unremarkable. PHYSICAL EXAMINATION: GENERAL: Reveals a pale, but alert gentleman in no acute distress. HEENT: E xam is essentially unremarkable. LUNGS: Reveal rales at the right base heard best posteriorly. CAR DIAC: Shows a regular rhythm. ABDOMEN: Shows active bowel sounds. No tenderness. LOWER EXTREMITI ES: Show 1+ edema bilaterally, but no unilateral swelling, erythema, or tenderness. Thank you very much for allowing us to participate in this pleasant gentleman's care. We look forwar d to assisting with his management during his hospitalization and beyond.. /[id number]/MODL
--- NOTE | 2018-04-28 15:42 | ASMTCMCOM ---
CM Note CM Note Notes: Pt is a 82 year old male who presents with septic shock. Pt has history of lymphoma. Is currently on Chemo and sees Dr. Acosta. Pt's discharge needs TBD. CM to follow. Plan: TBD Date Signed: 04/28/2018 03:41 PM Electronically Signed By:GAVI Escalante
[2018-04-28] MEDS ORDERED: MIRTAZAPINE 15 MG TAB PO PRN (21:00)
[2018-04-28] MEDS ORDERED: VANCOMYCIN 1 GM in NS 250 ML IV SCH (22:00)
[2018-04-29] MEDS: PIPERACILLIN/TAZO 4.5 GM/DEX 100 ML IV SCH ×2 (02:55→08:12)
[2018-04-29 05:17] LABS: PLATELET COUNT 89 10^3/uL (150-400)
[2018-04-29] MEDS: HEPARIN/DEXTROSE 500 ML IV SCH (06:19)
[2018-04-29] MEDS ORDERED: PROTOCOL POTASSIUM 1 DOSE MISC PRN (07:06)
[2018-04-29] MEDS ORDERED: PROTOCOL MAGNESIUM 1 DOSE IV PRN (07:06)
[2018-04-29] MEDS ORDERED: POTASSIUM CL 10 MEQ TAB PO ONE ×2 (07:33→21:17)
[2018-04-29] MEDS ORDERED: MAGNESIUM SULF 1 GM/DEXTROSE 100 ML IV ONE (07:40)
--- NOTE | 2018-04-29 09:45 | PDINTPN ---
Graduate Internship Progress Note Assessment/Plan: Assessment/plan: * Acute pulmonary embolus -on heparin * Epistaxis-left nostril. -will add humidified oxygen * Lymphoma * Hypotension-resolved * Dyspnea-improved -wean FiO2 as tolerated * PT/OT * Out of bed to chair Subjective: Resting comfortably. Complains of some breathlessness. Difficulty breathing on the left nostril. Objective: Vital Signs Temp Pulse Resp BP Pulse Ox 36.3 C 79 22 H 91/52 L 95 04/29/18 08:00 04/29/18 08:00 04/29/18 08:00 04/29/18 08:00 04/29/18 08:00 Laboratory Results 04/29/18 05:00 04/29/18 05:00 04/28/18 04/29/18 04/30/18 05:59 05:59 05:59 Intake Total 4174 3563 Output Total 600 1600 200 Balance 3574 1963 -200 PT 16.1 SEC (12.0-15.0) H 04/28/18 12:10 INR 1.27 (0.83-1.16) H 04/28/18 12:10 - Time Spent With Patient Time Spent With Patient: 35 min of time spent with patient, over 1/2 involved with coordination of care counseling. Case discussed with Nursing and Respiratory therapy Physical Exam - Physical Exam General Appearance: alert, no apparent distress EENT: PERRL/EOMI Neck: non-tender, full range of motion Respiratory: crackles (Few basilar), No respiratory distress, No wheezing Cardiac/Chest: normal peripheral pulses, regular rate, rhythm, systolic murmur Peripheral Pulses: 2+: carotid (R), carotid (L), femoral (R), femoral (L), dorsalis-pedis (R), dorsalis-pedis (L) Abdomen: normal bowel sounds, non-tender, soft Male Genitalia: deferred Rectal: deferred Skin: warm/dry Extremities: non-tender Neuro/Psych: no motor/sensory deficits, alert, normal mood/affect, oriented x 3 ICD10 Worksheet Patient Problems: Problems Problem Status Onset Lymphoma Acute Septic shock Acute CAD (coronary artery disease), [place] coronary artery Acute Primary localized osteoarthritis of right hip Acute
[2018-04-29] MEDS: ACYCLOVIR 200 MG CAP PO SCH ×2 (10:31→21:33)
[2018-04-29] MEDS: ROSUVASTATIN CALCIUM 20 MG TAB PO SCH (10:31)
[2018-04-29] MEDS: PANTOPRAZOLE SODIUM 40 MG TAB PO SCH (10:31)
[2018-04-29] MEDS: NS 1,000 ML IV SCH (10:32)
--- NOTE | 2018-04-29 11:34 | SOAPPROG ---
ERIC Progress Note Assessment/Plan: Assessment: - Stage IIIB follicular lymphoma - RX with rituxan/bendamustine - He is due for re-eval. Will do CT A/P (already just had CTA chest this admission) for comparison to [facility] scans - PE - agree with anticoagulation. Plts up to 89k. - Thrombocytopenia - probably multifactorial. No acute intervention needed. Full anticoagulation is appropriate Plan: - CT A/P in next day or 2 when considered stable by rn angiography service - anticoag as you are doing - monitor counts Subjective: c/o plugged L nostril. Otherwise feels OK Objective: Vital Signs Temp Pulse Resp BP Pulse Ox 36.3 C 74 24 H 98/44 L 100 04/29/18 08:00 04/29/18 10:00 04/29/18 10:00 04/29/18 10:00 04/29/18 10:00 Laboratory Results 04/29/18 05:00 04/29/18 05:00 04/27/18 04/28/18 04/29/18 23:59 23:59 23:59 Intake Total 2300 3456 1981 Output Total 1600 800 Balance 2300 1856 1181 PT 16.1 SEC (12.0-15.0) H 04/28/18 12:10 INR 1.27 (0.83-1.16) H 04/28/18 12:10 Physical Exam - Physical Exam General Appearance: alert, mild distress Respiratory: rhonchi (a few scattered), No rales, No wheezing, No pleural rub Abdomen: normal bowel sounds ICD10 Worksheet Patient Problems: Problems Problem Status Onset Lymphoma Acute Septic shock Acute CAD (coronary artery disease), [place] coronary artery Acute Primary localized osteoarthritis of right hip Acute
--- NOTE | 2018-04-29 11:55 | HOSPPROG ---
Hospitalist Progress Note Assessment/Plan: DIAGNOSES: * Acute pulmonary emboli with hypotension and hypoxemia * Anemia and thrombocytopenia due to lymphoma; need to follow platelets closely while we have him here on anticoagulation but per Dr. Gale we are not expecting platelets to drop further * Moderately large left pleural effusion, question if due to PE or if possibly related to malignancy * ? of pneumonia, no definitive findings but hard to rule out; cultures pending * Mild acute renal insufficiency * Hypokalemia * Follicular lymphoma on current therapy with Rituxan; is due for abdominal CT which we will do during this admission * Chronic hypertension comes in with hypotension as above * Hyponatremia resolved * History of coronary disease with stent 2 years ago; stable PLANS: * Continue IV heparin for now * Will plan on switching to NOAC if platelets remain stable, likely discharge on that * Follow platelets and anemia very closely * Continue empiric antibiotics but will switch to standard antibiotics for community-acquired pneumonia * Can transfer to cancer care unit today * Potassium replacement * Follow renal function closely * CT of abdomen during this admission for monitoring of his lymphoma Seen by me on hospitalist rounds as well as multidisciplinary rounds Reviewed in detail with Dr. Morales Luevano and Chris Gale SUBJECTIVE: Patient states he feels fine though did not get very good sleep Less pleuritic pain, not coughing little shortness of breath but very inactive Eating okay OBJECTIVE Vitals reviewed: Remains tachypneic and with borderline blood pressures, no fever and pulse is good [place] [employer], my review: Sinus Exam: alert oriented relaxed skin warm dry color ok resps mildly tachypneic but not labored lungs diminished but clear BSs with some evidence of further decreased breath sounds at left lung base essentially unchanged from yesterday heart regular abd soft nondistended nontender, bowel sounds present limbs warm, no edema iv site ok Imaging: CT scan images from yesterday reviewed by me show multiple right-sided pulmonary emboli as well as moderately large left pleural effusion, no definite infiltrates, some atelectasis present, no masses noted Microbiology: Nothing in cultures to this point Lab data: Slightly more anemic at 9.6, platelets stable 89, white count remains in low normal range Creatinine slightly up at 1.4 though BUN is improving Potassium low at 2.9 Objective: Vital Signs Temp Pulse Resp BP Pulse Ox 36.3 C 74 24 H 98/44 L 100 04/29/18 08:00 04/29/18 10:00 04/29/18 10:00 04/29/18 10:00 04/29/18 10:00 Laboratory Results 04/29/18 05:00 04/29/18 05:00 04/28/18 04/29/18 04/30/18 06:59 06:59 06:59 Intake Total 4174 3563 Output Total 600 1600 200 Balance 3574 1963 -200 PT 16.1 SEC (12.0-15.0) H 04/28/18 12:10 INR 1.27 (0.83-1.16) H 04/28/18 12:10 - Time Spent With Patient Time Spent with Patient: greater than 35 minutes Time Spent with Patient: Greater than 35 minutes spent on this patients care, greater than 50% of time spent counseling, educating, and coordinating care regarding the above mentioned plan. ICD10 Worksheet Patient Problems: Problems Problem Status Onset Lymphoma Acute Septic shock Acute CAD (coronary artery disease), [place] coronary artery Acute Primary localized osteoarthritis of right hip Acute
[2018-04-29] MEDS: OXYMETAZOLINE 30 ML NASAL SPRAY EACHNARE PRN (12:16)
[2018-04-30] MEDS: HEPARIN/DEXTROSE 500 ML IV SCH ×2 (01:48→20:12)
[2018-04-30] MEDS ORDERED: POTASSIUM CL 10 MEQ TAB PO ONE ×3 (08:46→23:00)
[2018-04-30] MEDS: PANTOPRAZOLE SODIUM 40 MG TAB PO SCH (10:40)
[2018-04-30] MEDS: ROSUVASTATIN CALCIUM 20 MG TAB PO SCH (10:40)
[2018-04-30] MEDS: ACYCLOVIR 200 MG CAP PO SCH ×2 (10:40→19:53)
--- NOTE | 2018-04-30 11:07 | HOSPPROG ---
Hospitalist Progress Note Assessment/Plan: DIAGNOSES: * Acute pulmonary emboli with hypotension and hypoxemia * Anemia and thrombocytopenia due to lymphoma; need to follow platelets closely while we have him here on anticoagulation but per Dr. Gale we are not expecting platelets to drop further * Moderately large left pleural effusion, question if due to PE or if possibly related to malignancy * ? of pneumonia, no definitive findings but hard to rule out; cultures pending * Mild acute renal insufficiency * Hypokalemia * Marked good generalized deconditioning and weakness, gait instability due to this * Follicular lymphoma on current therapy with Rituxan * Hyponatremia resolved * History of coronary disease with stent 2 years ago; stable PLANS: * Continue IV heparin for now * Will plan on switching to NOAC if platelets remain stable, likely discharge on that * Follow platelets and anemia very closely * Repeat chest x-ray today to reassess pleural effusions * Continue Levaquin through 06/29 * Potassium monitoring replacement * Follow renal function closely * CT of abdomen scheduled for today for follow-up of lymphoma SUBJECTIVE: Weak and tired Coughing a little bit more Short of breath with activities Still with occasional minor nosebleed No chest pain OBJECTIVE Vitals reviewed: Blood pressure is better overall but still intermittently low in bed, still intermittently tachypneic otherwise stable pulse no fever Desk Operator, my review: Sinus Exam: alert oriented relaxed, looks tired skin warm dry pale resps mildly tachypneic but not labored lungs diminished slightly rhonchorous breath sounds, decreased at both lung bases with egophony in those regions heart regular abd soft nondistended nontender, bowel sounds present limbs warm, slight bipedal edema iv site ok Microbiology: Nothing in cultures to this point Lab data: Platelets 90986 Potassium better but still low at 3.3 Sodium stable 134 BUN better though creatinine minimally higher at 1.5 Objective: Vital Signs Temp Pulse Resp BP Pulse Ox 36.4 C 81 16 113/69 94 04/30/18 04:31 04/30/18 07:39 04/30/18 07:39 04/30/18 07:39 04/30/18 07:39 Laboratory Results 04/30/18 05:07 04/30/18 05:07 04/29/18 04/30/18 05/01/18 06:59 06:59 06:59 Intake Total 3563 500 Output Total 1600 1240 Balance 1963 -740 PT 16.1 SEC (12.0-15.0) H 04/28/18 12:10 INR 1.27 (0.83-1.16) H 04/28/18 12:10 - Time Spent With Patient Time Spent with Patient: greater than 35 minutes Time Spent with Patient: Greater than 35 minutes spent on this patients care, greater than 50% of time spent counseling, educating, and coordinating care regarding the above mentioned plan. ICD10 Worksheet Patient Problems: Problems Problem Status Onset Lymphoma Acute Septic shock Acute CAD (coronary artery disease), [place] coronary artery Acute Primary localized osteoarthritis of right hip Acute
[2018-04-30] MEDS ORDERED: IOHEXOL 300 mgI/ML (OMNIPAQUE) 150 ML BTL IV ONE (11:10)
--- NOTE | 2018-04-30 15:02 | SOAPPROG ---
ERIC Progress Note Assessment/Plan: Assessment: - Stage IIIB follicular lymphoma - RX with rituxan/bendamustine - His lymphoma looks worse on today's scan. - PE - agree with anticoagulation. Plts are adequate. - Hypotension - Dizzy with standing up. Dr. Acosta to evaluate. Plan: - anticoag as you are doing - monitor counts - He will need a new plan for his lymphoma after stabilization. Subjective: 'I'm dizzy when I stand' Objective: Vital Signs Temp Pulse Resp BP Pulse Ox 36.4 C 85 16 103/57 L 96 04/30/18 04:31 04/30/18 12:28 04/30/18 12:28 04/30/18 12:28 04/30/18 13:12 Laboratory Results 04/30/18 05:07 04/30/18 05:07 04/28/18 04/29/18 04/30/18 23:59 23:59 23:59 Intake Total 3456 2381 100 Output Total 1600 1340 500 Balance 1856 1041 -400 PT 16.1 SEC (12.0-15.0) H 04/28/18 12:10 INR 1.27 (0.83-1.16) H 04/28/18 12:10 Physical Exam - Physical Exam General Appearance: alert, mild distress Respiratory: decreased breath sounds Abdomen: normal bowel sounds ICD10 Worksheet Patient Problems: Problems Problem Status Onset Lymphoma Acute Septic shock Acute CAD (coronary artery disease), [place] coronary artery Acute Primary localized osteoarthritis of right hip Acute
[2018-04-30] MEDS ORDERED: NS 500 ML IV ONE (15:04)
[2018-05-01 08:01] LABS: PLATELET COUNT 91 10^3/uL (150-400)
[2018-05-01] MEDS ORDERED: POTASSIUM CL 10 MEQ TAB PO ONE ×2 (08:51→19:44)
[2018-05-01] MEDS ORDERED: MAGNESIUM SULF 1 GM/DEXTROSE 100 ML IV ONE (08:53)
[2018-05-01] MEDS: ACYCLOVIR 200 MG CAP PO SCH ×2 (09:13→20:48)
[2018-05-01] MEDS: PANTOPRAZOLE SODIUM 40 MG TAB PO SCH (09:14)
[2018-05-01] MEDS: ROSUVASTATIN CALCIUM 20 MG TAB PO SCH (09:14)
--- NOTE | 2018-05-01 13:13 | HOSPPROG ---
Hospitalist Progress Note Assessment/Plan: Acute right sided PE with hypotension and hypoxemia - currently 96% on 1 LPM. -cont heparin for now -transition to NOAC once it's clear he will not require procedure -check limited echo to eval RV function given hypotension (had nl RV function on 01/2018 echo, slightly elevated PAP) Anemia and thrombocytopenia due to lymphoma - plts trending up -follow Left pleural effusion, query malignant effusion vs related to PE (on other side) -not terribly symptomatic, defer thora for now -check lateral decubitus film in am KIMBERLYN - Cr on the rise, 1.2 --> 1.5, s/p IV contrast and also note episodes of hypotension along with poor oral intake -send urine Na, urine Cr to calculate FeNa, suspect pre-renal vs ATN -start NS, recheck bmp in am Follicular lymphoma - on Rituxan. CT abd yest shows progression of disease with increased LAD -oncology following, discussed with Dr. Gale Hypokalemia - replace per protocol, watch closely with rising Cr Gait instability / weakness / deconditioning - PT/OT Hyponatremia resolved History of coronary disease with stent 2 years ago; stable - mild diastolic dysfunction noted on 01/2018 echo, nl EF of 68% Full code Dispo - cont inpt Subjective: Pt feels a little better. Says breathing is improved. No cough. No SOB at rest. Denies CP. No fevers. Poor oral intake per family Objective: Vital Signs Temp Pulse Resp BP Pulse Ox 36.6 C 80 24 H 113/71 96 05/01/18 07:41 05/01/18 07:41 05/01/18 07:41 05/01/18 07:41 05/01/18 07:41 Laboratory Results 05/01/18 07:30 05/01/18 07:30 04/30/18 05/01/18 05/02/18 05:59 05:59 05:59 Intake Total 500 2063 Output Total 1090 650 Balance -590 1413 PT 16.1 SEC (12.0-15.0) H 04/28/18 12:10 INR 1.27 (0.83-1.16) H 04/28/18 12:10 - Physical Exam Constitutional: no apparent distress Eyes: PERRL Ears, Nose, Mouth, Throat: moist mucous membranes Cardiovascular: regular rate and rhythym Respiratory: no respiratory distress, reduced air movement, other (decreased breath sounds on left, o/w ctab) Gastrointestinal: normoactive bowel sounds, soft, non-tender abdomen Skin: warm Musculoskeletal: full muscle strength Neurologic: AAOx3 Psychiatric: interacting appropriately ICD10 Worksheet Patient Problems: Problems Problem Status Onset Lymphoma Acute Septic shock Acute CAD (coronary artery disease), [place] coronary artery Acute Primary localized osteoarthritis of right hip Acute
[2018-05-01] MEDS ORDERED: NS 1,000 ML IV SCH (13:45)
--- NOTE | 2018-05-01 14:23 | SOAPPROG ---
SOAP Progress Note Assessment/Plan: Assessment: - Stage IIIB follicular lymphoma - RX with rituxan/bendamustine - His lymphoma looks worse on yesterday's scan - PE - agree with anticoagulation. Plts are adequate. For decubitus film tomorrow to see if there is anything to tap. - Hypotension - Dizzy with standing up. Dr. Acosta to evaluate. Plan: - anticoag as you are doing - monitor counts - He will need a new plan for his lymphoma after stabilization. Subjective: still dizzy with sitting up. Poor nutritional intake Objective: Vital Signs Temp Pulse Resp BP Pulse Ox 36.6 C 80 24 H 113/71 96 05/01/18 07:41 05/01/18 07:41 05/01/18 07:41 05/01/18 07:41 05/01/18 07:41 Laboratory Results 05/01/18 07:30 05/01/18 07:30 04/29/18 04/30/18 05/01/18 23:59 23:59 23:59 Intake Total 2381 1466 697 Output Total 1340 800 200 Balance 1041 666 497 PT 16.1 SEC (12.0-15.0) H 04/28/18 12:10 INR 1.27 (0.83-1.16) H 04/28/18 12:10 Physical Exam - Physical Exam General Appearance: moderate distress Respiratory: decreased breath sounds (L base) Skin: pallor Neuro/Psych: depressed affect ICD10 Worksheet Patient Problems: Problems Problem Status Onset Lymphoma Acute Septic shock Acute CAD (coronary artery disease), [place] coronary artery Acute Primary localized osteoarthritis of right hip Acute
[2018-05-01] MEDS: FLUTICASONE NASAL 120 SPRAYS/16 GM MDI EACHNARE SCH (15:19)
--- NOTE | 2018-05-01 15:24 | ECHO ---
[email or web address] [place] [id number] Main: [phone] Fax: Transthoracic Echocardiogram Name: ANGIE CARREON MR#: [id number] Study Date: 05/01/2018 Study Time: 02:33 PM Date of : 1935 Age: 82 year(s) Height: 175.3 cm (69 in.) Weight: 73.48 kg (162 lb.) BSA: 1.89 m2 Gender: Male Examination: Limited Echo Indication: PE, Hypotension/eval RV function Image Quality: Good Contrast: Requested by: Jessica Roberson BP: / Heart Rate: Rhythm: Indication: PE, Hypotension/eval RV function Procedure Staff Body Maker: Harriet Reese MAURILIO Reading Physician: Joesph Kaye MD Requesting Provider: Conclusions: Normal study Measurements: Chambers Valvular Assessment AV/MV Valvular Assessment TV/PV Normal Normal Normal Name Value Range Name Value Range Name Value Range EF Range: 75-80 % AV Vmax: 1.45 m/s (1 m/s-1.7 m/s) AV maxP mmHg ( - ) AV meanP mmHg ( - ) MV E Vmax: 0.71 m/s ( - ) MV A Vmax: 0.88 m/s ( - ) MV E/A: 0.81 ( - ) Continued Measurements: Findings: Left Ventricle: Normal size left ventricle. Global hypercontractility of the left ventricle. The ejection fraction is estimated to be 75-80 %. Right Ventricle: Normal size right ventricle. Normal RV function. Left Atrium: The left atrium is normal in size. Right Atrium: The right atrium is normal in size. Mitral Valve: The mitral valve is normal in appearance. There is no mitral valve regurgitation. Aortic Valve: Patient: ANGIE CARREON Study Date: 05/01/2018 Page 1 of 2 02:33 PM Mild aortic cusp calcification is noted. Tricuspid Valve: The pulmonary artery pressure is normal. Pulmonic Valve: Pulmonary valve not well visualized. Pericardium: Left side pleural effusion. (No Signature Object) Patient: ANGIE CARREON Study Date: 05/01/2018 Page 2 of 2 02:33 PM [id number]
[2018-05-01] MEDS: HEPARIN/DEXTROSE 500 ML IV SCH (15:27)
--- NOTE | 2018-05-01 17:13 | ASMTCMCOM ---
CM Note CM Note Notes: Chart reviewed. Per therapy patient will need SNF. Referrals in allscripts. CM to follow. Plan: To SNF Date Signed: 05/01/2018 05:13 PM Electronically Signed By:Amy Mathis RN
[2018-05-02] MEDS: OXYMETAZOLINE 30 ML NASAL SPRAY EACHNARE PRN (03:01)
[2018-05-02 04:59] LABS: PLATELET COUNT 96 10^3/uL (150-400)
[2018-05-02] MEDS: ROSUVASTATIN CALCIUM 20 MG TAB PO SCH (09:35)
[2018-05-02] MEDS: PANTOPRAZOLE SODIUM 40 MG TAB PO SCH (09:35)
[2018-05-02] MEDS: ACYCLOVIR 200 MG CAP PO SCH ×2 (09:35→20:47)
[2018-05-02] MEDS: FLUTICASONE NASAL 120 SPRAYS/16 GM MDI EACHNARE SCH (09:41)
[2018-05-02] MEDS ORDERED: POTASSIUM CL 10 MEQ TAB PO ONE ×3 (10:27→22:13)
[2018-05-02] MEDS ORDERED: MAGNESIUM SULF 2 GM/WATER 50 ML IV ONE ×2 (10:28→15:45)
--- NOTE | 2018-05-02 10:46 | HOSPPROG ---
Hospitalist Progress Note Assessment/Plan: Acute right sided PE with hypotension and hypoxemia - currently 96% on 1 LPM, BP 's stable. Echo reviewed, no e/o right heart strain. -cont heparin for now with planned procedure (see below) Left pleural effusion, query parapneumonic vs malignant effusion vs related to PE, rpt xray today with decubitus views pers reviewed and interp- show enlarging , free flowing effusion -thoracentesis today with fluid analysis and will send for cytology (hold heparin prior to procedure) Pneumonia - cont renally dosed Levaquin Anemia and thrombocytopenia due to lymphoma - plts trending up -follow KIMBERLYN - Cr on the rise, 1.2 --> 1.5, s/p IV contrast and also note episodes of hypotension along with poor oral intake -suspect pre-renal with FeNa 0.62% -cont NS, recheck bmp in am Follicular lymphoma - on Rituxan. CT abd yest shows progression of disease with increased LAD -oncology following, discussed with Dr. Enriquez Hypokalemia / Hypomagnesemia - replace per protocol, watch closely with rising Cr Gait instability / weakness / deconditioning - PT/OT Hyponatremia resolved History of coronary disease with stent 2 years ago; stable - mild diastolic dysfunction noted on 01/2018 echo, nl EF of 68% Full code Dispo - cont inpt Subjective: Pt doing a little better. Off O2, but still quite SOB and tachypneic. BP low when up out of bed. Poor oral intake. Denies CP or cough. No fevers. Objective: Vital Signs Temp Pulse Resp BP Pulse Ox 36.6 C 78 22 H 107/59 L 93 05/02/18 09:01 05/02/18 09:01 05/02/18 09:01 05/02/18 09:01 05/02/18 09:01 Laboratory Results 05/02/18 04:40 05/02/18 04:40 05/01/18 05/02/18 05/03/18 05:59 05:59 05:59 Intake Total 2063 200 Output Total 650 400 Balance 1413 -200 PT 16.1 SEC (12.0-15.0) H 04/28/18 12:10 INR 1.27 (0.83-1.16) H 04/28/18 12:10 - Physical Exam Constitutional: no apparent distress Eyes: PERRL Ears, Nose, Mouth, Throat: moist mucous membranes Cardiovascular: regular rate and rhythym Respiratory: no respiratory distress, reduced air movement, other (decreased breath sounds on right, scattered crackles) Gastrointestinal: normoactive bowel sounds, soft, non-tender abdomen Skin: warm Musculoskeletal: full muscle strength Neurologic: AAOx3 Psychiatric: interacting appropriately ICD10 Worksheet Patient Problems: Problems Problem Status Onset Lymphoma Acute Septic shock Acute CAD (coronary artery disease), [place] coronary artery Acute Primary localized osteoarthritis of right hip Acute
[2018-05-02] MEDS: HEPARIN/DEXTROSE 500 ML IV SCH (10:48)
[2018-05-02] MEDS ORDERED: NS 1,000 ML IV SCH (11:00)
[2018-05-02] MEDS ORDERED: SODIUM CL NASAL GEL 14.1 GM TUBE TP PRN (11:04)
[2018-05-02] MEDS ORDERED: SODIUM CL NASAL 45 ML BTL EACHNARE PRN (15:21)
[2018-05-02 16:03] LABS: INR 1.33 (0.83-1.16); PROTIME(PATIENT) 16.7 SEC (12.0-15.0)
[2018-05-02] MEDS ORDERED: LIDOCAINE 1% 300 MG/30 ML SDV ONE (16:31)
[2018-05-02] MEDS: ENOXAPARIN 80 MG/0.8 ML SYR SC SCH (20:46)
[2018-05-02] MEDS: HYDROCODONE/APAP 5/325 TAB PO PRN ×2 (21:57→23:34)
[2018-05-03] MEDS: HYDROCODONE/APAP 5/325 TAB PO PRN ×4 (02:50→20:28)
[2018-05-03] MEDS ORDERED: Lenalidomide [Revlimid] 10 MG PO SCH (09:00)
[2018-05-03] MEDS: ENOXAPARIN 80 MG/0.8 ML SYR SC SCH ×2 (11:00→20:28)
[2018-05-03] MEDS: PANTOPRAZOLE SODIUM 40 MG TAB PO SCH (11:01)
[2018-05-03] MEDS: ROSUVASTATIN CALCIUM 20 MG TAB PO SCH (11:01)
[2018-05-03] MEDS: ACYCLOVIR 200 MG CAP PO SCH ×2 (11:01→20:27)
--- NOTE | 2018-05-03 12:37 | SOAPPROG ---
SOAP Progress Note Assessment/Plan: Assessment: SOAP Progress Note Assessment/Plan: Assessment: - Stage IIIB follicular lymphoma - Has progressed on two prior lines of therapy. While additional treatment options are a consideration, patient states 'he's done'. Discussed palliative care consult with he and his . They are wanting to proceed. - PE - On lovenox. - Left pleural effusion-s/p thoracentesis. Exudative, lymphocyte predominance. Suspect due to progressive lymphoma. Cytology pending. Will try to send flow. - Anemia/Thrombocytopenia-no signs of bleeding, multifactorial. Discussed consideration of RBC transfusion, he wants to 'think about it'. - Deconditioning-will likely need SNF Plan: - Continue anticoagulation. - Palliative care consult tomorrow. did not discuss cor status today, but DNR appropriate given situation - May agree to transfusion tomorrow - Follow up on cytology/flow on effusion. 05/03/18 12:44 Subjective: He does not want to do any more treatment for the lymphoma, very weak Objective: Vital Signs Temp Pulse Resp BP Pulse Ox 36.1 C 93 20 131/87 H 93 05/03/18 12:20 05/03/18 12:20 05/03/18 12:20 05/03/18 12:20 05/03/18 12:20 Microbiology 05/02/18 17:10 Gram Stain - Final Thoracic Fluid - Aspirate Laboratory Results 05/03/18 04:35 05/03/18 04:35 05/02/18 05/03/18 05/04/18 05:59 05:59 05:59 Intake Total 200 880 Output Total 400 475 175 Balance -200 405 -175 PT 16.7 SEC (12.0-15.0) H 05/02/18 04:40 INR 1.33 (0.83-1.16) H 05/02/18 04:40 Physical Exam - Physical Exam General Appearance: alert Respiratory: other (dereased breath sounds at the bases) Abdomen: non-tender, soft Extremities: No pedal edema ICD10 Worksheet Patient Problems: Problems Problem Status Onset Lymphoma Acute Septic shock Acute CAD (coronary artery disease), [place] coronary artery Acute Primary localized osteoarthritis of right hip Acute
--- NOTE | 2018-05-03 13:19 | HOSPPROG ---
Hospitalist Progress Note Assessment/Plan: Acute right sided PE with hypotension and hypoxemia - currently 96% on 1 LPM, BP 's stable. Echo reviewed, no e/o right heart strain. -cont lovenox, change to eliquis at d/c Left pleural effusion - s/p thoracentesis yesterday, symptoms improved today. Exudative per light's criteria, diff with 73% lymph, no orgs on gram stain, normal pH thus doubt empyema. May be parapneumonic effusion with LLL infiltrate vs related to lymphoma. -Cx, cytology pending, onc to add flow cytometry LLL Pneumonia - cont renally dosed Levaquin Anemia and thrombocytopenia due to lymphoma - plts trending up -follow KIMBERLYN - s/p IV contrast and also note episodes of hypotension along with poor oral intake, Cr down a bit today after IVF's (1.5-->1.4). Suspect pre-renal with FeNa 0.62% vs ATN -cont NS, follow Follicular lymphoma - on Rituxan. CT abd yest shows progression of disease with increased LAD. Discussed with Dr. Enriquez, pt tiring of tx. -palliative care consult Hypokalemia / Hypomagnesemia - replace per protocol, watch closely with rising Cr Gait instability / weakness / deconditioning - PT/OT Hyponatremia resolved History of coronary disease with stent 2 years ago; stable - mild diastolic dysfunction noted on 01/2018 echo, nl EF of 68% Full code Dispo - cont inpt, planning for SNF, likely d/c in 1-2 days Subjective: Pt feels ok, still weak, poor appetite. He stated to oncologist that he was "done". Says his breathing is better today after thora yesterday. No cough, CP or SOB at rest. No fevers. Objective: Vital Signs Temp Pulse Resp BP Pulse Ox 36.1 C 93 20 131/87 H 93 05/03/18 12:20 05/03/18 12:20 05/03/18 12:20 05/03/18 12:20 05/03/18 12:20 Microbiology 05/02/18 17:10 Gram Stain - Final Thoracic Fluid - Aspirate Laboratory Results 05/03/18 04:35 05/03/18 04:35 05/02/18 05/03/18 05/04/18 05:59 05:59 05:59 Intake Total 200 880 Output Total 400 475 175 Balance -200 405 -175 PT 16.7 SEC (12.0-15.0) H 05/02/18 04:40 INR 1.33 (0.83-1.16) H 05/02/18 04:40 - Physical Exam Constitutional: no apparent distress Eyes: PERRL Ears, Nose, Mouth, Throat: moist mucous membranes Cardiovascular: regular rate and rhythym Respiratory: no respiratory distress, reduced air movement Gastrointestinal: normoactive bowel sounds, soft, non-tender abdomen Skin: warm Musculoskeletal: full muscle strength Neurologic: AAOx3 Psychiatric: interacting appropriately ICD10 Worksheet Patient Problems: Problems Problem Status Onset Lymphoma Acute Septic shock Acute CAD (coronary artery disease), [place] coronary artery Acute Primary localized osteoarthritis of right hip Acute
[2018-05-03] MEDS ORDERED: MAGNESIUM SULF 1 GM/DEXTROSE 100 ML IV ONE (14:25)
[2018-05-03] MEDS: 1/2 NS 1,000 ML IV SCH (17:22)
[2018-05-03] MEDS: FLUTICASONE NASAL 120 SPRAYS/16 GM MDI EACHNARE SCH (17:23)
[2018-05-04] MEDS ORDERED: POTASSIUM CL 10 MEQ TAB PO ONE ×2 (02:35→07:56)
[2018-05-04 05:14] LABS: PLATELET COUNT 90 10^3/uL (150-400)
[2018-05-04] MEDS: 1/2 NS 1,000 ML IV SCH (06:10)
--- NOTE | 2018-05-04 07:51 | SOAPPROG ---
SOAP Progress Note Assessment/Plan: Assessment: 1) Stage IIIB Follicular lymphoma with progression on second line therapy 2) RLL PE 3) Anemia secondary to #1 4) Left pleural effusion 5) Deconditioning Plan: Patient does not want further active therapy for his lymphoma. He confirms this today. Palliative care consult planned for later today to discuss options. Patient will likely require a SNF. Will hold of on transfusion as anemia slowly improving. Continue Lovenox for PE. Reasonable to switch to Eloquis or Xarelto as d/c approaches. Plan d/w patient. His questions were answered. 05/04/18 07:46 Subjective: Feels fatigued. Denies CP or dyspnea at rest. Objective: Vital Signs Temp Pulse Resp BP Pulse Ox 36.8 C 81 16 103/65 91 L 05/04/18 00:00 05/04/18 04:58 05/04/18 04:58 05/04/18 04:58 05/04/18 04:58 Microbiology 05/02/18 17:10 Gram Stain - Final Thoracic Fluid - Aspirate Body Fluid Culture - Final Laboratory Results 05/04/18 04:40 05/04/18 04:40 05/03/18 05/04/18 05/05/18 05:59 05:59 05:59 Intake Total 880 1200 3078 Output Total 475 325 Balance 638 020 8127 PT 16.7 SEC (12.0-15.0) H 05/02/18 04:40 INR 1.33 (0.83-1.16) H 05/02/18 04:40 - Time Spent With Patient Time Spent With Patient: 25 minutes Physical Exam - Physical Exam General Appearance: alert EENT: PERRL/EOMI Respiratory: lungs clear Abdomen: non-tender, soft Neuro/Psych: normal mood/affect, oriented x 3 ICD10 Worksheet Patient Problems: Problems Problem Status Onset Lymphoma Acute Septic shock Acute CAD (coronary artery disease), [place] coronary artery Acute Primary localized osteoarthritis of right hip Acute
[2018-05-04] MEDS ORDERED: MAGNESIUM SULF 1 GM/DEXTROSE 100 ML IV ONE (07:56)
[2018-05-04] MEDS: ROSUVASTATIN CALCIUM 20 MG TAB PO SCH (08:51)
[2018-05-04] MEDS: ENOXAPARIN 80 MG/0.8 ML SYR SC SCH (08:52)
[2018-05-04] MEDS: ACYCLOVIR 200 MG CAP PO SCH (08:52)
[2018-05-04] MEDS: PANTOPRAZOLE SODIUM 40 MG TAB PO SCH (08:52)
[2018-05-04] MEDS: FLUTICASONE NASAL 120 SPRAYS/16 GM MDI EACHNARE SCH (08:58)
--- NOTE | 2018-05-04 10:51 | HOSPPROG ---
Hospitalist Progress Note Assessment/Plan: Acute right sided PE with hypotension and hypoxemia - currently 96% on 3 LPM. Still has intermittent hypotension c/w orthostasis. Echo reviewed, no e/o right heart strain. -Change to eliquis this evening Left pleural effusion - s/p thoracentesis yesterday. Exudative per light's criteria, diff with 73% lymph, no orgs on gram stain, normal pH thus doubt empyema. May be parapneumonic effusion with LLL infiltrate vs related to lymphoma. -Cx, cytology pending, onc to add flow cytometry LLL Pneumonia - cont renally dosed Levaquin, last dose 05/05 for 7 days of tx Hypoxemia - slight increase in O2 requirement today -repeat CXR now Anemia and thrombocytopenia due to lymphoma - plts stable ~90 -follow KIMBERLYN - s/p IV contrast and also note episodes of hypotension along with poor oral intake, Cr down a bit today after IVF's (1.5-->1.4). Suspect pre-renal with FeNa 0.62% vs ATN -cont to follow Follicular lymphoma - on Rituxan. CT abd yest shows progression of disease with increased LAD. Discussed with Dr. Enriquez, pt tiring of tx and clearly states to me he does not want any further treatment, acknowledging this will lead to end of life phase. -palliative care consult, hospice is reasonable Tachycardia - tele looks like a fib -check EKG Orthostasis - has received occasional boluses and IVF's, now 4L net positive, but still orthostatic, ?autonomic dysfunction -trial albumin q6h x24 hrs Hypokalemia / Hypomagnesemia - replace per protocol, watch closely with rising Cr Gait instability / weakness / deconditioning - PT/OT Hyponatremia resolved History of coronary disease with stent 2 years ago; stable - mild diastolic dysfunction noted on 01/2018 echo, nl EF of 68% Full code Dispo - cont inpt, planning for SNF, likely d/c in 1-2 days Objective: Vital Signs Temp Pulse Resp BP Pulse Ox 36.7 C 91 20 79/52 L 92 05/04/18 07:59 05/04/18 09:00 05/04/18 07:59 05/04/18 09:00 05/04/18 07:59 Microbiology 05/02/18 17:10 Gram Stain - Final Thoracic Fluid - Aspirate Body Fluid Culture - Final Laboratory Results 05/04/18 04:40 05/04/18 04:40 05/03/18 05/04/18 05/05/18 05:59 05:59 05:59 Intake Total 880 1200 3078 Output Total 475 325 150 Balance 110 815 7449 PT 16.7 SEC (12.0-15.0) H 05/02/18 04:40 INR 1.33 (0.83-1.16) H 05/02/18 04:40 ICD10 Worksheet Patient Problems: Problems Problem Status Onset Lymphoma Acute Septic shock Acute CAD (coronary artery disease), [place] coronary artery Acute Primary localized osteoarthritis of right hip Acute
[2018-05-04] MEDS: ALBUMIN 25% 200 ML IV SCH ×2 (12:47→17:52)
--- NOTE | 2018-05-04 15:13 | GCON ---
[f rep st] CONSULTATION PALLIATIVE CARE CONSULT DATE OF CONSULTATION: 05/04/2018 REQUESTING PHYSICIAN: Dr. Roberson HISTORY: This is an 83-year-old male known to our service from prior Palliative Care consultation at home. The patient presented on 04/27 with fever , chills and shakes and had been recently (January 2018) diagnosed with retroperitoneal lymphadenopathy with biopsy confirming a follicular lymphoma. He has received 2 prior rounds of chemotherapy and has been followed by Dr. Duong, at [facility]. The patient has expressed to the [facility], [place] oncologist here that he wishes no further chemotherapy and has been consistently expressing his wishes with his hospitalist team. During this hospitalization, he has been found to have a right lower lobe pulmonary embolism as well as a left lower lobe infiltrate and a left-sided pleural effusion, and patient underwent thoracentesis yesterday with removal of roughly 1 liter, which seemed to allow some relief of dyspnea initially; however, he has become more short of breath again since. He is currently being maintained on Levaquin for possible infectious etiology of left lower lobe infiltrate. An echocardiogram on 05/01 showed a mild aortic cusp valve calcification. The pulmonary artery pressure was normal, and a left-sided pleural effusion was noted. Ejection fraction was estimated at 75% to 80% with global hypercontractility noted. CT pulmonary angiogram demonstrated thromboemboli in the right lower lobe, mediastinal upper abdominal lymphadenopathy consistent with non-Hodgkin lymphoma, moderate left pleural effusion, patchy ground-glass opacities in bilateral lower lobes and cholelithiasis. A restaging CT scan demonstrated progression of lymphoma as evidenced by increased volume of confluent retroperitoneal and left common iliac lymphadenopathy with trace fluid in the pelvis, no abscess, and mild edema versus colitis of the cecum was noted. No bowel obstruction or ileus appreciated. There was no bile duct stone or biliary obstruction noted; however, cholelithiasis was commented on again. While in house, Jose has received fluid resuscitation and is currently receiving albumin as he has demonstrated recurrent hypotension, particularly orthostatic. He has continued to feel short of breath and states that he feels short of breath today, although was not able to quantify this. He denies any pain at present and denies nausea but noted he has had a dramatic decrease in strength. Patient's , Sadia, was at the bedside and reports that, in November, Jose was active, demonstrating normal activity. They had a trip to [place] and began to note that something was wrong at that time, and he has been steadily declining since, with decline greatly accelerating immediately prior to coming in to the hospital. He weighed 193 in December 2017, and prior to admission weighed 152. He has been sleeping 19-20 hours per day and was previously walking with a walker in the home, but now, unable to ambulate. There were 2-3 falls at home prior to this hospitalization; at one point, Sadia had to call her son-in-law in order to lift him from the floor. She notes his mental status has generally been intact; however, early on in his course, in the setting of hypercalcemia, there may have had some mild confusion. Given his shortness of breath and obvious fatigue, today's visit was kept somewhat short; however, I was able to ascertain that Jose's goals, at this point, would be focused on comfort. He confirms with me that he does not wish to have further chemotherapy, and he would not wish to have his care escalated, which would include avoiding the intensive care unit. Dr. Roberson had discussed code status with him prior to my arrival, and he has denoted himself a do not resuscitate. When we discussed his wishes and options available, it was quite apparent that Hospice Services would be appropriate, at which time we discussed what those services might look like. Sadia had hoped that Jose would be strong enough to go to rehab and regain strength, which would allow him to return to home; however, she now doubts that he will be able to do this. Their concern is that she will not be able to are for him at home, to which I would agree, and they had many questions regarding placement. We discussed the nature of hospice services and the goals of emphasizing symptom control and quality of life while de-emphasizing testing and rehospitalization. Jose had never considered this before and has little familiarity with these services, but both, he and Sadia, felt that would likely be the best course. PAST MEDICAL HISTORY: 1. Hypertension. 2. 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 3. Coronary artery disease status post PCR in 2016. 4. Dyslipidemia. 5. Gastroesophageal reflux disease. PAST SURGICAL HISTORY: Surgical history includes bilateral total hip replacements and bilateral total knee arthroplasty. SOCIAL HISTORY: Patient is originally from [facility]. They have been in [place] since 2013. He has been for 23 years. Jose has 3 sons, 1 granddaughter, and Sadia has 2 children and 3 grandchildren who are local. 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 They have no rastafari affiliation, and they do not identify spirituality as an important support. CURRENT MEDICATIONS: 1. Tylenol 650 mg every 4 hours p.r.n. mild pain or fever. 2. [place] 1-2 tablets p.o. every 4 hours p.r.n. moderate pain. 3. Acyclovir 200 mg p.o. b.i.d. 4. Albumin every 6 hours as directed 200 mL. 5. Apixaban 5 mg p.o. b.i.d. scheduled. 6. Flonase 2 sprays each naris daily. 7. Levaquin 550 mg p.o. every 2 days. 8. Magnesium sulfate p.r.n. based on electrolyte protocol. 9. Remeron 15 mg p.o. nightly p.r.n. restless leg. 10. Morphine 15 mg p.o. every 3 hours p.r.n. severe pain. 11. Nitroglycerin 0.4 mg sublingual p.r.n. chest pain. 12. Oxymetazoline nasal spray 1 spray each naris every 12 hours. 13. Protonix 40 mg p.o. daily. 14. Potassium chloride p.r.n. for electrolyte protocol. 15. Crestor 20 mg p.o. daily. 16. [place] saline nasal gel p.r.n. nasal dryness. 17. [place] spray as needed. ALLERGIES: He has no known drug allergies. PHYSICAL EXAM: VITAL SIGNS: Most recent vitals show a blood pressure of 83/52 with a heart rate of 54. O2 saturations 96%. Respiratory rate of 16, this is on 2 liters per Ox[employer]izer. GENERAL: Patient looks stated age. He appears alert and oriented x 4, obviously dyspneic and speaking, at times, in sentence fragments and appears notably fatigued with a grayish complexion. HEENT: Pupils are equal, round and reactive to light and accommodation. Oropharynx with dry mucous membranes. There is a slight amount of white exudate on the soft palate not entirely consistent with thrush. It could easily be food particles. CHEST: Notably diminished in the left base with dullness to percussion at this locus. No appreciable wheezes, rales or rhonchi. He is showing some accessory muscle use and rare indrawing. CARDIOVASCULAR: Regular rate and rhythm without murmurs, rubs or gallops, though, slightly hyperdynamic. Peripheral pulses are +2/3, radial artery is +1/3 in dorsalis pedis arteries bilaterally. ABDOMEN: Bowel sounds are present. Soft, nontender, nondistended. No appreciable ascites. No palpable or pulsatile masses; however, exam is limited as patient was left lateral recumbent. EXTREMITIES: He has 2+ pedal edema bilaterally to about mid amos. No nail signs. No clubbing or cyanosis appreciated. NEURO: Cranial nerves II-XII are grossly intact. No focal motor findings. The patient was able to turn himself in bed without assistance. DERM: Limited exam; however, no acute lesions appreciated with the exception of notable bruising on the left upper arm and forearm with moderate edema accompanying. LABORATORY WORK: Pertinent laboratory work per HPI. 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 1. B cell lymphoma. Progressive and aggressive disease with no further interventions desired by the patient. 2. Dyspnea. The patient is notably dyspneic. I suspect this is multifactorial from his pulmonary embolus and his left lower lobe infiltrate as well as his left-sided pleural effusion. He seems at high likelihood to re- accumulate this effusion in relatively short order. Whether this is katlyn- pneumonic or malignant is pending, at this point, as cytologies were drawn yesterday; however, regardless, he may require repeat thoracentesis for comfort purposes. The patient would benefit from titration of low-dose opiates for relief of dyspnea, and his dyspnea is severe enough that, should he decide to pursue comfort measures only, he would meet GIP criteria for a hospice care center. 3. Profound weight loss. The patient has lost 41 pounds since December, which is certainly consistent with his underlying malignancy. I have explained to the patient and his that artificial nutrition would be very unlikely to be beneficial at this time; he is in agreement and would not want this intervention. 4. Profound weakness, again, consistent with disease progression. 5. Goals of care. Jose has been very clear his goals of care are to focus on comfort, and he has not only denoted himself a do not resuscitate but has requested no further interventions for his lymphoma. 6. Disposition. We discussed hospice services in detail. He appears quite appropriate. In my discussions with Dr. Barrera, who is rounding today for Oncology, it would appear his prognosis is likely limited. Dr. Barrera thought maximally 3-4 months. My suspicion is, with his current trajectory, his prognosis is, at this time, in terms of days to weeks with the potential for a more precipitous decline at any time, particularly in light of his cardiopulmonary status and his difficult to manage hypotension. Hospice services would be very appropriate, and as mentioned above, he would be appropriate for GIP management of dyspnea as he currently does not appear to be experiencing much relief of dyspnea with current opiate dosing. Given his hypotension, I think further opiate titration should be continued in a monitored setting. Case has been discussed with Dr. Roberson and Dr. Barrera who are in agreement with this plan. We will await family's decision and support this as much as possible. Case Management will offer a choice of hospice services to the patient. TIME SPENT: 90 minutes with greater than 50% of this time spent in patient and family counseling. Additional time was spent updating the patient's daughter per family's request via telephone. Thank you for this consultation and allowing us to participate in the care of this patient. We will follow along with you. /[id number]/MODL MTDD
--- NOTE | 2018-05-04 16:15 | ASMTCMCOM ---
CM Note CM Note Notes: Plan of care reviewed in am rounds. Palliative referral made. Patient and met with Jose Dr. Gonzalez and it is felt he is hospice appropriate and a referral for hospice was made. CM to follow for needs. Plan: To inpatient hospice. Date Signed: 05/04/2018 04:14 PM Electronically Signed By:Amy Mathis RN
[2018-05-04 16:48] VITALS: BP 106/60
--- NOTE | 2018-05-04 17:38 | GDS ---
[f rep st] DISCHARGE SUMMARY DISCHARGE DIAGNOSES: 1. Acute pulmonary embolism with hypotension and hypoxemia. 2. Left pleural effusion, status post thoracentesis. 3. Left lower lobe pneumonia, status post Levaquin treatment. 4. Hypoxemia. 5. Anemia and thrombocytopenia secondary to lymphoma. 6. Follicular lymphoma with progression of disease despite treatment. 7. Acute kidney injury. 8. Orthostatic hypotension. 9. Electrolyte abnormalities including hypokalemia and hypomagnesemia. 10. History of coronary artery disease with prior stents. 11. Gait instability with weakness and deconditioning. CONSULTANTS: 1. Dr. Morales Luevano, Pulmonology. 2. Dr. Chris Gale, Oncology. 3. Dr. Eliazar Moran, Palliative Care. HISTORY OF DETAILS: Please see the history and physical dated April 27, 2018. In brief, the patie nt is an 83-year-old male with history of advanced lymphoma, who presented to the hospital with fever s and chills. He initially met criteria for septic shock given an elevated lactate at 6.9. This was thought secondary to pneumonia and he was admitted to the hospital for further management. HOSPITAL COURSE: The patient was admitted to the intensive care unit and received IV fluid boluses p er septic shock protocol. A central line was placed. He did initially require Levophed, though he w as weaned off pressors. His lactic acid trended down. He was initially treated with Zosyn. This wa s transitioned to Levaquin. The following day, he underwent CT pulmonary angiogram which was positiv e for right lower lobe pulmonary embolism. This may be the reason for his hypotension. He was start ed on a heparin drip. He was followed for left-sided pleural effusion for a couple days. Repeat karen m showed an enlarging left pleural effusion. He underwent thoracentesis. This did improve his respi ratory status for a period of time. However, his continued to deteriorate. He was orthostatic despi te recurrent fluid boluses. He developed worsening dyspnea. His condition continued to decline. He ultimately acknowledged to his oncologist that he did not want any further treatment for his cancer and recognized this would lead to the end of his life. Palliative Care consult was requested. He wa s evaluated by Dr. Moran, who knows the patient from previous palliative care episodes. It was fel t he was appropriate for hospice and the patient and his both agreed that this was consistent wi th his goals of care. He was transitioned to DNR status. He was deemed to be a candidate to come ov er to the inpatient hospice care center for further end-of-life care. DISPOSITION: The patient is discharged to inpatient hospice in stable condition. FOLLOWUP: Followup per the inpatient hospice team. /[id number]/MODL
[2018-05-04] MEDS ORDERED: APIXABAN 5 MG TAB PO SCH (21:00)
--- NOTE | 2018-05-05 15:56 | CPEKG ---
Test Reason : OPEN Blood Pressure : / mmHG Vent. Rate : 085 BPM Atrial Rate : 084 BPM P-R Int : 148 ms QRS Dur : 098 ms QT Int : 361 ms P-R-T Axes : 014 029 058 degrees QTc Int : 430 ms Sinus rhythm Frequent PAC Low voltage, extremity leads Confirmed by Markos Bocanegra ([id number]) on 05/05/2018 3:55:37 PM Referred By: Gume Gardner Confirmed By:Markos Bocanegra
--- NOTE | 2018-05-06 11:45 | CPEKG ---
Test Reason : OPEN Blood Pressure : / mmHG Vent. Rate : 085 BPM Atrial Rate : 041 BPM P-R Int : 161 ms QRS Dur : 100 ms QT Int : 382 ms P-R-T Axes : 046 016 022 degrees QTc Int : 455 ms Sinus rhythm Supraventricular bigeminy Confirmed by Markos Bocanegra ([id number]) on 05/06/2018 11:44:15 AM Referred By: Gume Gardner Confirmed By:Markos Bocanegra
== END 2018-05-04 17:58 | disposition hospice, home (50) | DRG 175 ==
LOC: F2N 20:54 → F1N 04-29 15:01
PROVIDERS: ADMIT Internal Medicine; ATTEND Hospitalist
PROC: 02HV33Z Insertion of Infusion Device into Superior Vena Cava, Percutaneous Approach (ICD-10-PCS; principal; 2018-04-27)
PROC: 0W9B3ZZ Drainage of Left Pleural Cavity, Percutaneous Approach (ICD-10-PCS; 2018-05-02)
DX: I26.99 Other pulmonary embolism without acute cor pulmonale (principal); I95.1 Orthostatic hypotension; C82.48 Follicular lymphoma grade IIIb, lymph nodes of multiple sites; J18.0 Bronchopneumonia, unspecified organism; J91.8 Pleural effusion in other conditions classified elsewhere; N17.9 Acute kidney failure, unspecified; D63.0 Anemia in neoplastic disease; D69.59 Other secondary thrombocytopenia; E87.1 Hypo-osmolality and hyponatremia; E87.6 Hypokalemia; E83.42 Hypomagnesemia; R04.0 Epistaxis; Z51.5 Encounter for palliative care; I10 Essential (primary) hypertension; I25.10 Atherosclerotic heart disease of native coronary artery without angina pectoris; Z95.5 Presence of coronary angioplasty implant and graft; E78.5 Hyperlipidemia, unspecified; K21.9 Gastro-esophageal reflux disease without esophagitis; Z96.643 Presence of artificial hip joint, bilateral; Z96.653 Presence of artificial knee joint, bilateral
CPT/HCPCS: 85520-90; 96365; 97110-GP; 97116-GP; 97161-GP; 97166-GO; 97530-GO; 97530-GP; J1644; J1650; J2543; J3370; J3475; J3480; P9047; Q9967